=== PATIENT | male | born 1950 | race African-American/Black ===

== ENCOUNTER 2016-11-22 19:23 | Emergency (ER) | payer MEDICARE, MEDICAID ==
[2016-11-22] MEDS ORDERED: IPRATROPIUM/ALBUTEROL 0.5-2.5 MG/3 ML AMPUL NEB ONE (19:35)
[2016-11-22] MEDS ORDERED: PREDNISONE 20 MG TABLET PO ONE (19:35)
[2016-11-22] MEDS: ALBUTEROL SULFATE 0.083% NEB 2.5 MG/3 ML AMPUL NEB SCH ×2 (19:56→20:37)
--- NOTE | 2016-11-22 20:05 | RADIOLOGY REPORT (SQ) ---
EXAM DESCRIPTION: CHEST SINGLE VIEW COMPLETED DATE/TIME: 11/22/2016 7:57 pm REASON FOR STUDY: difficulty breathing COMPARISON: 12/03/2015 NUMBER OF VIEWS: One view. TECHNIQUE: Single frontal radiographic view of the chest acquired. LIMITATIONS: None. FINDINGS: LUNGS AND PLEURA: No consolidation, masses or pneumothorax. No pleural effusion. Attenuate d blood vessels and flattened sarah-diaphragms. MEDIASTINUM AND HILAR STRUCTURES: No masses. Contour normal. HEART AND VASCULAR STRUCTURES: Heart normal in size. Normal vasculature. BONES: Stable old healed rib fractures. HARDWARE: None in the chest. OTHER: No other significant finding. IMPRESSION: COPD. NO ACUTE RADIOGRAPHIC FINDING IN THE CHEST. TECHNICAL DOCUMENTATION: JOB ID: [id number] [employer]- All Rights Reserved
--- NOTE | 2016-11-22 21:17 | ER Document Report ---
ED General - General Chief Complaint: Breathing Difficulty Stated Complaint: NOT FEELING WELL Time Seen by Provider: 11/22/16 19:46 Cannot obtain history due to: Uncooperative Notes: Patient is a 65-year-old male with a past medical history of depression, anxiety , COPD with a chronic 4 L nasal cannula oxygen dependence who presents with " not feeling well" despite spending over 10 minutes at the bedside and trying to get the patient to clarify what he meant, patient just continue to repeat he does not feel well and "that is it". He denies any difficulty breathing chest pain, vomiting, diarrhea, abdominal pain, dysuria, flank pain, headache, neck pain. The nursing assessment is likewise been unproductive and they have not been able to get any additional information from the patient. Review of prior medical records shows that he is typically a very poor historian and does not provide meaningful information arrival. TRAVEL OUTSIDE OF THE [place] IN LAST 30 DAYS: No - Related Data Allergies/Adverse Reactions: Penicillins Allergy (Verified 01/04/15 10:16) Anaphylaxis strawberry [[place]] Allergy (Verified 01/04/15 10:16) Rash Past Medical History - General Information source: Patient Cannot obtain history due to: Mentally challenged, Uncooperative - Social History Smoking Status: Former Smoker Frequency of alcohol use: Heavy Drug Abuse: None Lives with: [facility] Family History: DM, Hypertension - Past Medical History Cardiac Medical History: Reports: Hx Hypercholesterolemia, Hx Hypertension Pulmonary Medical History: Reports: Hx COPD, Hx Pneumonia Denies: Hx Tuberculosis Neurological Medical History: Reports: Hx Seizures Psychiatric Medical History: Denies: Hx Depression - Immunizations Hx Diphtheria, Pertussis, Tetanus Vaccination: Yes Hx Pneumococcal Vaccination: 03/27/12 Review of Systems - Review of Systems Notes: Constitutional: Negative for fever. HENT: Negative for sore throat. Eyes: Negative for visual changes. Cardiovascular: Negative for chest pain. Respiratory: Negative for shortness of breath. Gastrointestinal: Negative for abdominal pain, vomiting or diarrhea. Genitourinary: Negative for dysuria. Musculoskeletal: Negative for back pain. Skin: Negative for rash. Neurological: Negative for headaches, weakness or numbness. 10 point ROS negative except as marked above and in HPI. Physical Exam - Vital signs Vitals: Temp Resp BP Pulse Ox 97.6 F 13 147/88 H 100 11/22/16 19:42 11/22/16 19:42 11/22/16 19:42 11/22/16 19:42 Interpretation: Hypertensive Notes: PHYSICAL EXAMINATION: GENERAL: Appears older than stated age, somewhat cachectic but in no acute distress HEAD: Atraumatic, normocephalic. EYES: Pupils equal round and reactive to light, extraocular movements intact, sclera anicteric, conjunctiva are normal. ENT: nares patent, oropharynx clear without exudates. Moderately dry mucous membranes. NECK: Normal range of motion, supple without lymphadenopathy LUNGS: Scant expiratory wheezing in all lung elliott. Air movement otherwise appropriate throughout. No tachypnea or respiratory distress HEART: Regular rate and rhythm without murmurs ABDOMEN: Soft, nontender, normoactive bowel sounds. No guarding, no rebound. No masses appreciated. EXTREMITIES: Normal range of motion, no pitting or edema. No cyanosis. NEUROLOGICAL: No focal neurological deficits. Moves all extremities spontaneously and on command. PSYCH: Cognitive function appears below normal. Very difficult historian unable to provide meaningful information SKIN: Warm, Dry, normal turgor, no rashes or lesions noted. Course - Re-evaluation Re-evalutation: 11/22/16 21:17 Patient presents with a very vague complaints of not feeling well. Patient is overall older than his stated age in appearance but in no acute distress, vitals within normal limits, no focal findings on examination of the mild expiratory wheezing on exam but does not appear to be having overt COPD exacerbation. Chest x-ray is clear without any evidence of an acute pneumonia. Given the very vague nature of patient's complaints, I will obtain basic screening laboratories and if these are unremarkable plan for discharge back to the nursing facility. 11/22/16 22:49 Laboratories are all unremarkable with exception of mild hyponatremia that appears to be delusional as the BUN creatinine are normal and the urine specific gravity is quite low. Patient continues to be hemodynamically within normal limits. I do not see any indication for further testing or imaging at this time. PCO2 is elevated although pH is normal as patient is a chronic CO2 retainer. Will discharge with recommendations to follow up closely as an outpatient, increased salt intake, as well as clear return precautions. - Vital Signs Vital signs: Temp Pulse Resp BP Pulse Ox 97.6 F 11 L 144/79 H 100 11/22/16 19:42 11/22/16 23:25 11/22/16 23:25 11/22/16 23:25 - Laboratory Result Diagrams: 11/22/16 21:30 11/22/16 21:30 Laboratory results interpreted by me: 11/22/16 11/22/16 11/22/16 21:30 21:30 21:30 RBC 3.87 L Hgb 12.9 L Hct 37.1 L Monocytes % (Manual) 14 H VBG pH 7.29 L VBG pCO2 68.7 H* VBG HCO3 32.2 H Sodium 128.1 L Chloride 90 L AST 79 H Urine Blood 11/22/16 21:36 RBC Hgb Hct Monocytes % (Manual) VBG pH VBG pCO2 VBG HCO3 Sodium Chloride AST Urine Blood SMALL H - Diagnostic Test Radiology reviewed: Image reviewed, Reports reviewed Radiology results interpreted by me: 11/22/16 22:50 Chest x-ray: No acute infiltrate or pneumothorax - EKG Interpretation by Me Additional EKG results interpreted by me: 11/22/16 22:51 Sinus rhythm. Rate 75. No ST elevations or depressions. QTC is 443. Discharge - Discharge Clinical Impression: Hyponatremia COPD (chronic obstructive pulmonary disease) Qualifiers: COPD type: unspecified COPD Qualified Code(s): J44.9 - Chronic obstructive pulmonary disease, unspecified Condition: Good Disposition: HOME, SELF-CARE Additional Instructions: Your labs today show that your sodium is low. Be sure to increase your salt intake and avoid excessive amounts of free water. Your labs and chest x-ray are otherwise normal. Please follow-up with your primary care doctor in the next several days. Return for any additional concerns you may have. Referrals: CARLI GARCIA FNP-C [Primary Care Provider] - Follow up as needed
[2016-11-22 21:36] LABS: VENOUS BLOOD BASE EXCESS 3.6 mmol/L; VENOUS BLOOD HCO3 32.2 mmol/L (20-32); VENOUS BLOOD PH 7.29 (7.30-7.42)
[2016-11-22 21:54] LABS: VENOUS BLOOD PCO2 68.7 mmHg (35-63)
[2016-11-22 21:59] LABS: HEMATOCRIT 37.1 % (37.9-51.0); HEMOGLOBIN 12.9 g/dL (13.5-17.0); HGB HCT DIFFERENCE 1.6; MEAN CORPUSCULAR HEMOGLOBIN 33.4 pg (27.0-33.4); MEAN CORPUSCULAR HGB CONC 34.9 g/dL (32.0-36.0); MEAN CORPUSCULAR VOLUME 96 fl (80-97); RED BLOOD COUNT 3.87 10^6/uL (4.35-5.55); RED CELL DISTRIBUTION WIDTH 13.2 % (11.5-14.0); WHITE BLOOD COUNT 7.1 10^3/uL (4.0-10.5)
[2016-11-22 22:04] VITALS: BP 144/79
[2016-11-22 22:08] LABS: ALANINE AMINOTRANSFERASE 29 U/L (21-72); ALBUMIN 4.7 g/dL (3.5-5.0); ALKALINE PHOSPHATASE 105 U/L (38-126); ANION GAP 8 (5-19); ASPARTATE AMINO TRANSFERASE 79 U/L (17-59); BILIRUBIN,DIRECT 0.3 mg/dL (0.0-0.4); BILIRUBIN,TOTAL 0.3 mg/dL (0.2-1.3); BLOOD UREA NITROGEN 9 mg/dL (7-20); CALCIUM 8.9 mg/dL (8.4-10.2); CARBON DIOXIDE 30 mmol/L (22-30); CHLORIDE 90 mmol/L (98-107); CREATININE RESULT 0.63 mg/dL (0.52-1.25); GLUCOSE 103 mg/dL (75-110); POTASSIUM 4.2 mmol/L (3.6-5.0); SODIUM 128.1 mmol/L (137-145); TOTAL PROTEIN 7.5 g/dL (6.3-8.2)
[2016-11-22 22:33] LABS: APPEARANCE,URINE CLEAR; BILIRUBIN,URINE NEGATIVE (NEGATIVE); GLUCOSE, URINE NEGATIVE (NEGATIVE); KETONES,URINE NEGATIVE (NEGATIVE); LEUKOCYTE ESTERASE,URINE NEGATIVE (NEGATIVE); NITRITE,URINE NEGATIVE (NEGATIVE); PROTEIN,URINE NEGATIVE (NEGATIVE); URINE SPECIFIC GRAVITY 1.005; UROBILINOGEN,URINE NEGATIVE mg/dL (<2.0)
[2016-11-22 22:34] LABS: BASOPHILS % (MANUAL) 0 % (0-2); EOSINOPHILS % (MANUAL) 0 % (0-6); LYMPHOCYTES % (MANUAL) 18 % (13-45); TOTAL CELLS COUNTED 100
[2016-11-22 22:35] LABS: OVALOCYTES SLIGHT; POIKILOCYTOSIS SLIGHT
--- NOTE | 2016-11-22 22:54 | EKG REPORT ---
SEVERITY:- ABNORMAL ECG - SINUS RHYTHM CONSIDER LEFT VENTRICULAR HYPERTROPHY ST ELEVATION SUGGESTS PERICARDITIS : Confirmed by: Laura Chapa 22-Nov-2016 22:54:15
== END 2016-11-22 23:44 | disposition home or self-care (01) ==
LOC: ER 19:23
DX: E87.1 Hypo-osmolality and hyponatremia (principal); J44.9 Chronic obstructive pulmonary disease, unspecified; Z99.81 Dependence on supplemental oxygen; I10 Essential (primary) hypertension; Z91.018 Allergy to other foods; Z87.892 Personal history of anaphylaxis; Z88.0 Allergy status to penicillin; Z87.891 Personal history of nicotine dependence; Z87.01 Personal history of pneumonia (recurrent)
CPT/HCPCS: 93005; 94640 ×2; 99285; 36415; 85025; 80053; 81001; 82803; 71010; 93010; A9270 ×3; J7512; J7620

== ENCOUNTER 2016-11-30 10:45 | Emergency (ER) | payer OTHER, MEDICARE, MEDICAID ==
--- NOTE | 2016-11-30 11:14 | ER Document Report ---
ED General - General Chief Complaint: Pain All Over Stated Complaint: BODY PAIN Time Seen by Provider: 11/30/16 10:53 Notes: This is a 65-year-old male coming from an assisted living facility with vague complaints of not feeling well. intermediate facility states that he called EMS on his own. They did not feel that he needed to be here. By report from nursing staff to the ER staff he does this on a frequent basis. Most recent visit was a few days ago where he had some mild hyponatremia but otherwise is unremarkable. Patient just states that he does not feel well. Unknown time of onset. No other associated signs or symptoms. Nothing seems to make it better or make it worse. TRAVEL OUTSIDE OF THE [place] IN LAST 30 DAYS: No - Related Data Allergies/Adverse Reactions: Penicillins Allergy (Verified 01/04/15 10:16) Anaphylaxis strawberry [[place]] Allergy (Verified 01/04/15 10:16) Rash Home Medications: Current Home Medications Acetaminophen [Acephen] 1 supp.rect RC Q4HP PRN 11/30/16 [History] Acetaminophen [Mapap] 500 mg PO Q4HP PRN 11/30/16 [History] Aspirin [Aspirin 81 mg Chewable Tablet] 81 mg PO DAILY 11/30/16 [History] Atropine Sulfate [Atropine 1% Oph Soln 5 ml] 4 drop SL Q2HP PRN 11/30/16 [ History] Calcium Carbonate [Constantin-Gest] 1 tab PO TID 11/30/16 [History] Diazepam 5 mg PO Q6HP PRN 11/30/16 [History] Diltiazem HCl [Cardizem Cd 240 mg Capsule.cr] 240 mg PO DAILY 11/30/16 [History] Fluticasone/Vilanterol [Breo Ellipta 200-25 Mcg INH] 1 puff IH DAILY 11/30/16 [ History] Haloperidol [Haldol 0.5 mg Tablet] 0.5 mg PO Q4HP PRN 11/30/16 [History] Loperamide HCl [Loperamide] 1 cap PO Q3HP PRN MDD 8 DOSES IN 24HOURS 11/30/16 [ History] Lorazepam [Ativan 0.5 mg Tablet] 0.5 mg PO Q6HP PRN 11/30/16 [History] Oxycodone HCl [Oxycodone HCl ER] 10 mg PO Q12H 11/30/16 [History] Polyethylene Glycol [Polyox Wsr-301] 1 gm MC DAILY 11/30/16 [History] Prednisone [Deltasone 20 mg Tablet] 10 mg PO DAILY 11/30/16 [History] Thiamine Mononitrate (Vit B1) [Vitamin B-1] 100 mg PO DAILY 11/30/16 [History] Past Medical History - Social History Smoking Status: Current Every Day Smoker Chew tobacco use (# tins/day): No Frequency of alcohol use: None Drug Abuse: None Family History: DM, Hypertension Patient has suicidal ideation: No Patient has homicidal ideation: No - Past Medical History Cardiac Medical History: Reports: Hx Hypercholesterolemia, Hx Hypertension Pulmonary Medical History: Reports: Hx COPD, Hx Pneumonia Denies: Hx Tuberculosis Neurological Medical History: Reports: Hx Seizures Renal/ Medical History: Denies: Hx Peritoneal Dialysis Psychiatric Medical History: Denies: Hx Depression - Immunizations Hx Diphtheria, Pertussis, Tetanus Vaccination: Yes Hx Pneumococcal Vaccination: 03/27/12 Review of Systems - Review of Systems Constitutional: Malaise, Weakness EENT: No symptoms reported Cardiovascular: No symptoms reported Gastrointestinal: No symptoms reported Genitourinary: No symptoms reported Male Genitourinary: No symptoms reported Musculoskeletal: No symptoms reported Skin: No symptoms reported Hematologic/Lymphatic: No symptoms reported Neurological/Psychological: No symptoms reported Physical Exam - Vital signs Vitals: Temp Pulse Resp BP Pulse Ox 97.5 F 87 14 117/89 H 98 11/30/16 10:54 11/30/16 10:54 11/30/16 10:54 11/30/16 10:54 11/30/16 10:54 Interpretation: Normal - General General appearance: Appears well, Alert In distress: None - HEENT Head: Normocephalic, Atraumatic Eyes: Normal. No: Scleral icterus Conjunctiva: Normal Extraocular movements intact: Yes Pupils: PERRL Neck: Normal. No: Carotid bruit - Respiratory Respiratory status: No respiratory distress Chest status: Nontender Breath sounds: Normal Chest palpation: Normal - Cardiovascular Rhythm: Regular Heart sounds: Normal auscultation Murmur: No - Abdominal Inspection: Normal Distension: No distension Bowel sounds: Normal Tenderness: Nontender Organomegaly: No organomegaly - Back Back: Normal, Nontender. No: Tender, Deformity/step-off, CVA tenderness - Extremities General upper extremity: Normal inspection, Nontender, Normal color, Normal ROM , Normal temperature General lower extremity: Normal inspection, Nontender, Normal color, Normal ROM , Normal temperature, Normal weight bearing. No: Katja's sign - Neurological Neuro grossly intact: Yes Cognition: Normal Orientation: AAOx4, Disoriented to place. No: Disoriented to time [place] Coma Scale Eye Opening: Spontaneous [place] Coma Scale Verbal: Oriented [place] Coma Scale Motor: Obeys Commands [place] Coma Scale Total: 15 Speech: Normal Motor strength normal: LUE, RUE, LLE, RLE Sensory: Normal - Psychological Associated symptoms: Normal affect, Normal mood. No: Aggressive, Agitated, Angry, Anxious, Confused - Skin Skin Temperature: Warm Skin Moisture: Dry Skin Color: Normal Course - Re-evaluation Re-evalutation: 11/30/16 11:14 This is a 65-year-old male in no acute distress at this time. Will order CBC, chemistry, UA if possible. Will give patient breakfast. Will reassess. 11/30/16 13:58 Labs fairly unremarkable. Has some baseline hyponatremia. Patient is eating and drinking. Does have some ketones in the urine but otherwise unremarkable. This likely represents his poor nutritional status. At this time find nothing that deserves admission to the hospital. [facility] at [facility] time. - Vital Signs Vital signs: Temp Pulse Resp BP Pulse Ox 97.3 F 100 12 122/86 H 100 11/30/16 12:38 11/30/16 12:38 11/30/16 12:38 11/30/16 12:38 11/30/16 12:38 - Laboratory Result Diagrams: 11/30/16 12:00 11/30/16 12:00 Laboratory results interpreted by me: 11/30/16 11/30/16 11/30/16 12:00 12:00 12:56 WBC 3.7 L RBC 4.24 L Monocytes % 17.4 H Sodium 130.7 L Chloride 87 L Direct Bilirubin 0.5 H Urine Protein 30 H Urine Ketones 80 H Urine Blood SMALL H Discharge - Discharge Clinical Impression: Myalgia, Weakness, Hyponatremia, Ketonuria Condition: Good Disposition: HOME-SNF (ED ONLY) Additional Instructions: Weakness We did not find a definite cause for your weakness. This may require further medical tests. Weakness can be caused by infection, physical exhaustion , rapid weight loss, dehydration, or medicine side effects. Diseases of the muscles, heart, nerves, and blood vessels can make you weak. Sometimes the problem is simply depression or lack of exercise. You should get plenty of rest. Unless the doctor tells you otherwise, it's usually best to add short periods of regular mild exercise. Eat a nutritious diet with multiple small, low-sugar meals. If symptoms continue, additional medical evaluation will be necessary. Be sure to follow up as instructed. If you become very dizzy, nauseated, or feel like you're going to faint, lie down right away. Wait until the symptoms have passed before you get up again. Stand up slowly. Call the doctor or return if you develop chest pain, abdominal pain, severe headache, irregular heartbeat or very fast pulse, confusion, vision problems, fever, muscular pain, or any other new symptom. Hyponatremia You have an abnormally low level of serum sodium, called hyponatremia. Low serum sodium may cause weakness, fatigue, confusion, or even seizures. Usually, low sodium is due to taking diuretics (water pills), combined with drinking too much water. It can also be due to excessive vomiting or diarrhea. If no obvious cause is evident, further evaluation will be necessary. If the hyponatremia results from taking diuretics, it's treated by restricting the amount of water you can drink. If it's due to vomiting and diarrhea, it's treated by drinking liberal amounts of rehydration solution (for example Lytren or Pedialyte). A follow-up blood test is often done to see that the sodium is returning to normal. Call the physician if you have severe weakness, muscle twitching or cramping, palpitations (pounding or irregular heartbeat), confusion, headache, seizures, or any other new or alarming symptoms. Myalagia (Muscle Pain) Myalgia is pain in the muscles. We use the word myalgia to describe muscle pain where there's no history of injury, no known muscle disease, and the muscles are normal to examination. Myalgias can be a symptom of an acute illness , such as influenza, hepatitis, or any viral illness, especially with fever. Sometimes the muscle pain comes before any other symptoms. Myalgia can also be an early symptom of inflammatory muscle disease, such as lupus. If myalgia is accompanied by an acute illness that explains the muscle pain , then no further testing needs to be done. When there's no clear reason for the pain, tests may be done to see if there's an inflammatory or other disease of the muscles. The usual treatment for myalgias is anti-inflammatory medication, such as ibuprofen. Muscle aches may be soothed with a heating pad or hot compress. If muscles remain painful for more than a few days, you'll need testing and followup. Return if a muscle becomes swollen, red, or severely painful.
[2016-11-30 12:18] LABS: ABSOLUTE BASOPHILS # (AUTO) 0.1 10^3/uL (0.0-0.2); ABSOLUTE EOSINOPHILS # (AUTO) 0.1 10^3/uL (0.0-0.6); ABSOLUTE LYMPHOCYTES (AUTO) 1.2 10^3/uL (0.5-4.7); ABSOLUTE MONOCYTES (AUTO) 0.6 10^3/uL (0.1-1.4); ABSOLUTE NEUT (AUTO) 1.7 10^3/uL (1.7-8.2); BASOPHILS % (AUTO) 1.4 % (0-2); EOSINOPHILS % (AUTO) 2.7 % (0-6); HEMATOCRIT 40.3 % (37.9-51.0); HEMOGLOBIN 13.8 g/dL (13.5-17.0); HGB HCT DIFFERENCE 1.1; LYMPHOCYTES % (AUTO) 33.1 % (13-45); MEAN CORPUSCULAR HEMOGLOBIN 32.4 pg (27.0-33.4); MEAN CORPUSCULAR HGB CONC 34.1 g/dL (32.0-36.0); MEAN CORPUSCULAR VOLUME 95 fl (80-97); MONOCYTES % (AUTO) 17.4 % (3-13); RED BLOOD COUNT 4.24 10^6/uL (4.35-5.55); RED CELL DISTRIBUTION WIDTH 13.3 % (11.5-14.0); SEGMENTED NEUTROPHILS % (AUTO) 45.4 % (42-78); WHITE BLOOD COUNT 3.7 10^3/uL (4.0-10.5)
[2016-11-30 12:29] LABS: ALANINE AMINOTRANSFERASE 43 U/L (21-72); ALBUMIN 4.7 g/dL (3.5-5.0); ALKALINE PHOSPHATASE 98 U/L (38-126); ANION GAP 15 (5-19); ASPARTATE AMINO TRANSFERASE 34 U/L (17-59); BILIRUBIN,DIRECT 0.5 mg/dL (0.0-0.4); BILIRUBIN,TOTAL 0.6 mg/dL (0.2-1.3); BLOOD UREA NITROGEN 13 mg/dL (7-20); CALCIUM 9.5 mg/dL (8.4-10.2); CARBON DIOXIDE 29 mmol/L (22-30); CHLORIDE 87 mmol/L (98-107); CREATININE RESULT 0.67 mg/dL (0.52-1.25); GLUCOSE 81 mg/dL (75-110); SODIUM 130.7 mmol/L (137-145); TOTAL PROTEIN 7.4 g/dL (6.3-8.2)
[2016-11-30 13:23] LABS: APPEARANCE,URINE CLEAR; BILIRUBIN,URINE NEGATIVE (NEGATIVE); GLUCOSE, URINE NEGATIVE (NEGATIVE); KETONES,URINE 80 mg/dL (NEGATIVE); LEUKOCYTE ESTERASE,URINE NEGATIVE (NEGATIVE); NITRITE,URINE NEGATIVE (NEGATIVE); PROTEIN,URINE 30 mg/dL (NEGATIVE); URINE SPECIFIC GRAVITY 1.027; UROBILINOGEN,URINE NEGATIVE mg/dL (<2.0)
[2016-11-30 14:54] VITALS: BP 147/87
== END 2016-11-30 14:45 ==
LOC: ER 10:45
DX: E87.1 Hypo-osmolality and hyponatremia (principal); M79.1 Myalgia; R82.4 Acetonuria; R53.1 Weakness; R53.81 Other malaise; F17.200 Nicotine dependence, unspecified, uncomplicated; I10 Essential (primary) hypertension; J44.9 Chronic obstructive pulmonary disease, unspecified; Z88.0 Allergy status to penicillin; Z91.018 Allergy to other foods
CPT/HCPCS: 36415; 80053; 81001; 85025; 99284

== ENCOUNTER 2016-12-06 21:39 | Emergency (ER) | payer OTHER, MEDICARE, MEDICAID ==
--- NOTE | 2016-12-06 22:13 | RADIOLOGY REPORT (SQ) ---
EXAM DESCRIPTION: CHEST SINGLE VIEW COMPLETED DATE/TIME: 12/06/2016 10:03 pm REASON FOR STUDY: cp COMPARISON: 11/22/2016 NUMBER OF VIEWS: One view. TECHNIQUE: Single frontal radiographic view of the chest acquired. LIMITATIONS: None. FINDINGS: LUNGS AND PLEURA: No opacities, masses or pneumothorax. No pleural effusion. Attenuated bl ood vessels and flattened sarah-diaphragms. MEDIASTINUM AND HILAR STRUCTURES: No masses. Contour normal. HEART AND VASCULAR STRUCTURES: Heart normal in size. Normal vasculature. BONES: No acute findings. Multiple old healed rib fractures. HARDWARE: None in the chest. OTHER: No other significant finding. IMPRESSION: COPD. NO ACUTE RADIOGRAPHIC FINDING IN THE CHEST. NO SIGNIFICANT CHANGE FROM PRIOR TIBURCIO DY. TECHNICAL DOCUMENTATION: JOB ID: [id number]- All Rights Reserved
[2016-12-06 22:14] LABS: ABSOLUTE LYMPHOCYTES (AUTO) 1.2 10^3/uL (0.5-4.7); ABSOLUTE MONOCYTES (AUTO) 0.6 10^3/uL (0.1-1.4); ABSOLUTE NEUT (AUTO) 2.3 10^3/uL (1.7-8.2); BASOPHILS % (AUTO) 0.9 % (0-2); EOSINOPHILS % (AUTO) 0.6 % (0-6); HEMATOCRIT 34.1 % (37.9-51.0); HEMOGLOBIN 11.9 g/dL (13.5-17.0); HGB HCT DIFFERENCE 1.6; LYMPHOCYTES % (AUTO) 28.2 % (13-45); MEAN CORPUSCULAR HEMOGLOBIN 33.4 pg (27.0-33.4); MEAN CORPUSCULAR VOLUME 96 fl (80-97); MONOCYTES % (AUTO) 14.4 % (3-13); RED BLOOD COUNT 3.57 10^6/uL (4.35-5.55); RED CELL DISTRIBUTION WIDTH 13.1 % (11.5-14.0); SEGMENTED NEUTROPHILS % (AUTO) 55.9 % (42-78); WHITE BLOOD COUNT 4.2 10^3/uL (4.0-10.5)
[2016-12-06 22:27] LABS: ALANINE AMINOTRANSFERASE 35 U/L (21-72); ALBUMIN 4.4 g/dL (3.5-5.0); ALKALINE PHOSPHATASE 88 U/L (38-126); ANION GAP 10 (5-19); ASPARTATE AMINO TRANSFERASE 32 U/L (17-59); BILIRUBIN,DIRECT 0.3 mg/dL (0.0-0.4); BILIRUBIN,TOTAL 0.3 mg/dL (0.2-1.3); BLOOD UREA NITROGEN 9 mg/dL (7-20); CALCIUM 8.9 mg/dL (8.4-10.2); CARBON DIOXIDE 32 mmol/L (22-30); CHLORIDE 93 mmol/L (98-107); CREATINE KINASE 160 U/L (55-170); CREATININE RESULT 0.78 mg/dL (0.52-1.25); GLUCOSE 79 mg/dL (75-110); POTASSIUM 4.4 mmol/L (3.6-5.0); SODIUM 134.8 mmol/L (137-145)
[2016-12-06 22:39] LABS: CREATINE KINASE MB 2.04 ng/mL (<4.55)
[2016-12-06 22:42] LABS: TROPONIN I < 0.012 ng/mL
--- NOTE | 2016-12-06 23:59 | ER Document Report ---
ED Cardiac - General Chief Complaint: Chest Pain Stated Complaint: CHEST PAIN Time Seen by Provider: 12/06/16 23:06 Notes: Patient is a 66-year-old male who presents via EMS from [facility] with a chief complaint of bilateral substernal chest pain that is started approximately 9 this evening. Described as sharp stabbing pain by EMS. He received 324 mg of aspirin at [facility] and nitroglycerin. Patient is calm and cooperative and states his pain is 1 out of 5 at this time. Mainly his chief complaint with me at the bedside is that he is cold and he is denying any chest pain at this time. Per report from the nursing staff he does call EMS on his own on a frequent basis. Otherwise denies any shortness of breath, chest pain, difficulty breathing, difficulty nausea, vomiting, abdominal pain fevers or chills. TRAVEL OUTSIDE OF THE [place] IN LAST 30 DAYS: No - Related Data Allergies/Adverse Reactions: Penicillins Allergy (Verified 12/06/16 22:34) Anaphylaxis strawberry [[place]] Allergy (Verified 12/06/16 22:34) Rash Past Medical History - Social History Smoking Status: Former Smoker Family History: DM, Hypertension - Past Medical History Cardiac Medical History: Reports: Hx Hypercholesterolemia, Hx Hypertension Pulmonary Medical History: Reports: Hx COPD, Hx Pneumonia Denies: Hx Tuberculosis Neurological Medical History: Reports: Hx Seizures Renal/ Medical History: Denies: Hx Peritoneal Dialysis GI Medical History: Reports: Hx Gastroesophageal Reflux Disease Psychiatric Medical History: Denies: Hx Depression - Immunizations Hx Diphtheria, Pertussis, Tetanus Vaccination: Yes Hx Pneumococcal Vaccination: 03/27/12 Review of Systems - Review of Systems Constitutional: No symptoms reported Cardiovascular: See HPI Respiratory: See HPI Gastrointestinal: See HPI -: Yes All other systems reviewed and negative Physical Exam - Vital signs Vitals: Resp 15 12/06/16 21:40 - Notes Notes: PHYSICAL EXAM GENERAL: Alert, interacts well. HEAD: Normocephalic, atraumatic. EYES: Pupils equal, round, and reactive to light. Extraocular movements intact. ENT: Oral mucosa moist, tongue midline. NECK: Full range of motion. Supple. Trachea midline. LUNGS: Clear to auscultation bilaterally, no wheezes, rales, or rhonchi. No respiratory distress. HEART: Regular rate and rhythm. No murmurs, gallops, or rubs. ABDOMEN: Soft, nondistended, nontender. No guarding, rebound, or rigidity.. Bowel sounds present in all 4 quadrants. EXTREMITIES: Moves all 4 extremities spontaneously. No edema, radial and dorsalis pedis pulses 2/4 bilaterally. No cyanosis. NEUROLOGICAL: Alert and oriented x4. Normal speech. PSYCH: Normal affect, normal mood. SKIN: Warm, dry, normal turgor. No rashes or lesions noted. Course - Re-evaluation Re-evalutation: 12/07/16 02:26 Patient presents with a very vague complaints of not feeling well. Patient is overall older than his stated age in appearance but in no acute distress, vitals within normal limits, no focal findings on examination. Low clinical suspicion for ACS given clinical history, exam, EKG without ST elevations or depressions, and negative initial troponin.Chest x-ray is clear without any evidence of an acute pneumonia. Laboratories are all unremarkable . Patient continues to be hemodynamically within normal limits. I do not see any indication for further testing or imaging at this time. Will discharge with recommendations to follow up closely as an outpatient, increased salt intake, as well as clear return precautions. - Vital Signs Vital signs: Temp Pulse Resp BP Pulse Ox 97.7 F 12 137/99 H 99 12/07/16 03:20 12/07/16 03:18 12/07/16 03:18 12/07/16 03:18 - Laboratory Result Diagrams: 12/06/16 21:55 12/06/16 21:55 Laboratory results interpreted by me: 12/06/16 12/06/16 21:55 21:55 RBC 3.57 L Hgb 11.9 L Hct 34.1 L Monocytes % 14.4 H Sodium 134.8 L Chloride 93 L Carbon Dioxide 32 H - Diagnostic Test Radiology reviewed: Image reviewed, Reports reviewed - EKG Interpretation by Me EKG shows normal: Sinus rhythm Rate: Normal Rhythm: NSR When compared to previous EKG there are: No significant change Discharge - Discharge Clinical Impression: Chest pain Qualifiers: Chest pain type: unspecified Qualified Code(s): R07.9 - Chest pain, unspecified Condition: Good Disposition: HOME, SELF-CARE Additional Instructions: NORMAL EXAM AND WORKUP: At this time, your examination and workup show no significant abnormality. No significant abnormal physical findings were noted. All laboratory, EKG, and imaging (x-ray, CT scans, ultrasound) studies that were ordered show no significant abnormality. Although your examination and all studies that were ordered showed no significant abnormal finding, there are no examinations and no studies that are 100% accurate. There is always the possibility that some abnormality could exist and not be detected with physical examination or within the limits and capabilities of laboratory and other studies. You should return or follow up as you were instructed on your visit today for further evaluation if your symptoms do not resolve. CHEST WALL PAIN: Your chest pain may be coming from the chest wall. This is often caused by straining the muscles or joints in the chest during physical activity, direct trauma, coughing, or vigorous vomiting. Persons with arthritis are especially prone to this type of pain, due to inflammation of the cartilage joints near the breast bone. Occasionally, no cause can be found. Rest from strenuous physical activity. This kind of chest pain is usually made worse by movement of the chest. Depending on the symptoms, we may prescribe medicine for pain, muscle relaxation, and antiinflammatory effects. If the pain is new, and seems to be due to muscle strain, cold packs can help. Otherwise, apply gentle warmth to the painful area for 15 minutes every hour or two. You should call contact the doctor immediately if things change. Further evaluation is needed if you develop a fever or cough, if the nature of the pain changes, or if you become short of breath. FOLLOW-UP CARE: If you have been referred to a physician for follow-up care, call the physician s office for an appointment as you were instructed or within the next two days. If you experience worsening or a significant change in your symptoms, notify the physician immediately or return to the Emergency Department at any time for re-evaluation.
[2016-12-07 03:27] VITALS: BP 137/99
--- NOTE | 2016-12-07 07:46 | EKG REPORT ---
SEVERITY:- ABNORMAL ECG - SINUS RHYTHM RIGHT ATRIAL ABNORMALITY CONSIDER LEFT VENTRICULAR HYPERTROPHY : Confirmed by: Jalen Antunez MD 07-Dec-2016 07:45:01
== END 2016-12-07 03:26 | disposition home or self-care (01) ==
LOC: ER 21:39
DX: R07.9 Chest pain, unspecified (principal); E78.00 Pure hypercholesterolemia, unspecified; I10 Essential (primary) hypertension; J44.9 Chronic obstructive pulmonary disease, unspecified; Z88.0 Allergy status to penicillin
CPT/HCPCS: 36415; 71010; 80053; 82550; 82553; 84484; 85025; 93005; 93010; 99285

== ENCOUNTER 2016-12-12 09:46 | Observation (INO) | payer OTHER, MEDICARE, MEDICAID ==
[2016-12-12] MEDS ORDERED: ASPIRIN 81 MG TABLET, CHEWABLE PO ONE (09:57)
--- NOTE | 2016-12-12 10:14 | ER Document Report ---
ED Cardiac - General Stated Complaint: CHEST PAIN Time Seen by Provider: 12/12/16 09:59 Mode of Arrival: Stretcher Information source: Patient TRAVEL OUTSIDE OF THE [place] IN LAST 30 DAYS: No - HPI Patient complains to provider of: Chest pain Quality of pain: Achy Chest pain precipitating factors: At Rest Cardiac risk factors: Smoker Similar symptoms previously: Yes Notes: Patient is a 66-year-old male sent from [facility] for complaints of chest pain, he states the chest pain started this morning, patient is otherwise a very poor historian and cannot answer any specific questions otherwise, when I asked him what his complaint was he stated "they say it is chest pain but I say it is heart pain", then when I asked him specifically where his pain is he states "all over" - Related Data Allergies/Adverse Reactions: Penicillins Allergy (Verified 12/12/16 11:06) Anaphylaxis strawberry [[place]] Allergy (Verified 12/12/16 11:06) Rash Past Medical History - General Information source: Patient, Outside Facility Records - Social History Smoking Status: Current Every Day Smoker Family History: DM, Hypertension - Past Medical History Cardiac Medical History: Reports: Hx Hypercholesterolemia, Hx Hypertension Pulmonary Medical History: Reports: Hx COPD, Hx Pneumonia Denies: Hx Tuberculosis Neurological Medical History: Reports: Hx Seizures Renal/ Medical History: Denies: Hx Peritoneal Dialysis GI Medical History: Reports: Hx Gastroesophageal Reflux Disease Psychiatric Medical History: Denies: Hx Depression - Immunizations Hx Diphtheria, Pertussis, Tetanus Vaccination: Yes Hx Pneumococcal Vaccination: 03/27/12 Review of Systems - Review of Systems Constitutional: No symptoms reported EENT: No symptoms reported Cardiovascular: Chest pain Respiratory: No symptoms reported Gastrointestinal: No symptoms reported Genitourinary: No symptoms reported Male Genitourinary: No symptoms reported Musculoskeletal: No symptoms reported Skin: No symptoms reported Hematologic/Lymphatic: No symptoms reported Neurological/Psychological: No symptoms reported -: Yes All other systems reviewed and negative Physical Exam - Vital signs Vitals: Pulse Ox 100 12/12/16 09:57 Interpretation: Normal - General General appearance: Appears well, Alert - HEENT Head: Normocephalic, Atraumatic Eyes: Normal Pupils: PERRL - Respiratory Respiratory status: No respiratory distress Chest status: Nontender Breath sounds: Normal Chest palpation: Normal - Cardiovascular Rhythm: Regular Heart sounds: Normal auscultation Murmur: No - Abdominal Inspection: Normal Distension: No distension Bowel sounds: Normal Tenderness: Nontender Organomegaly: No organomegaly - Back Back: Normal, Nontender - Extremities General upper extremity: Normal inspection, Nontender, Normal color, Normal ROM , Normal temperature General lower extremity: Normal inspection, Nontender, Normal color, Normal ROM , Normal temperature, Normal weight bearing. No: Katja's sign - Neurological Neuro grossly intact: Yes Cognition: Normal Orientation: AAOx4 [place] Coma Scale Eye Opening: Spontaneous [place] Coma Scale Verbal: Oriented [place] Coma Scale Motor: Obeys Commands [place] Coma Scale Total: 15 Speech: Normal Motor strength normal: LUE, RUE, LLE, RLE Sensory: Normal - Psychological Associated symptoms: Normal affect, Normal mood - Skin Skin Temperature: Warm Skin Moisture: Dry Skin Color: Normal Course - Re-evaluation Re-evalutation: 12/12/16 14:50 1450- call to Dr Reagan for admission- requested call to Dr Briseno call to Dr Briseno- will call back 12/12/16 15:[address] Briseno, accepts patient for admission but requests that he be able to evaluate patient before decision on which type of bed to admit or whether full admit or observation 12/12/16 16:16 [address] did speak with Dr[address] Frederick as he signed a DNR order in November 2015, to see if I can get some further information on patient regarding why he may be pancytopenic, he believes that this patient is 1 of his community care patients he requested I call Meagan from hospice at [phone] I did speak with Meagan from hospice she reports that patient was placed on hospice in May 2015 for COPD and history of falls with a cervical fracture, she reports that he has chronic pain issues as well as depression and anxiety, which increased after they discontinued services in October because he had no health decline related to the COPD, when hospice was involved he was having a daily visitor coming, since then he apparently has had more somatic complaints likely related to depression and possible loneliness - Vital Signs Vital signs: Temp Pulse Resp BP Pulse Ox 97.6 F 74 14 127/84 H 100 12/12/16 14:35 12/12/16 10:23 12/12/16 15:01 12/12/16 15:01 12/12/16 15:01 - Laboratory Result Diagrams: 12/12/16 12:04 12/12/16 12:56 Laboratory results interpreted by me: 12/12/16 12/12/16 12/12/16 10:30 12:04 12:56 WBC 2.9 L RBC 3.80 L Hgb 12.5 L Hct 36.0 L Plt Count 140 L Sodium 129.2 L Chloride 91 L Total Protein 6.2 L Urine Ketones TRACE H - Diagnostic Test Radiology reviewed: Image reviewed, Reports reviewed - EKG Interpretation by Me EKG shows normal: Sinus rhythm Rate: Normal Rhythm: NSR Discharge - Discharge Clinical Impression: Pancytopenia Chest pain Qualifiers: Chest pain type: unspecified Qualified Code(s): R07.9 - Chest pain, unspecified Condition: Stable Disposition: ADMITTED INPATIENT Admitting Provider: Hospitalist Unit Admitted: Telemetry
[2016-12-12 11:09] LABS: APPEARANCE,URINE CLEAR; BILIRUBIN,URINE NEGATIVE (NEGATIVE); GLUCOSE, URINE NEGATIVE (NEGATIVE); KETONES,URINE TRACE mg/dL (NEGATIVE); LEUKOCYTE ESTERASE,URINE NEGATIVE (NEGATIVE); NITRITE,URINE NEGATIVE (NEGATIVE); PROTEIN,URINE NEGATIVE (NEGATIVE); URINE SPECIFIC GRAVITY 1.015; UROBILINOGEN,URINE NEGATIVE mg/dL (<2.0)
--- NOTE | 2016-12-12 11:55 | RADIOLOGY REPORT (SQ) ---
EXAM DESCRIPTION: CHEST SINGLE VIEW COMPLETED DATE/TIME: 12/12/2016 11:18 am REASON FOR STUDY: cp COMPARISON: 12/06/2016 EXAM PARAMETERS: NUMBER OF VIEWS: One view. TECHNIQUE: Single frontal radiographic view of the chest acquired. RADIATION DOSE: NA LIMITATIONS: None. FINDINGS: LUNGS AND PLEURA: There is marked hyperexpansion of the lungs with marked lucency. No acu te infiltrate or effusion is seen. MEDIASTINUM AND HILAR STRUCTURES: No masses. Contour normal. HEART AND VASCULAR STRUCTURES: Heart normal in size. Normal vasculature. BONES: Rib deformities are present on the right. HARDWARE: None in the chest. OTHER: No other significant finding. IMPRESSION: Marked chronic lung changes with no acute cardiopulmonary disease. TECHNICAL DOCUMENTATION: JOB ID: [id number]
[2016-12-12 12:18] LABS: ABSOLUTE LYMPHOCYTES (AUTO) 0.7 10^3/uL (0.5-4.7); ABSOLUTE MONOCYTES (AUTO) 0.4 10^3/uL (0.1-1.4); ABSOLUTE NEUT (AUTO) 1.7 10^3/uL (1.7-8.2); BASOPHILS % (AUTO) 1.5 % (0-2); EOSINOPHILS % (AUTO) 1.2 % (0-6); HEMOGLOBIN 12.5 g/dL (13.5-17.0); HGB HCT DIFFERENCE 1.5; LYMPHOCYTES % (AUTO) 25.4 % (13-45); MEAN CORPUSCULAR HEMOGLOBIN 32.8 pg (27.0-33.4); MEAN CORPUSCULAR HGB CONC 34.6 g/dL (32.0-36.0); MEAN CORPUSCULAR VOLUME 95 fl (80-97); MONOCYTES % (AUTO) 12.6 % (3-13); RED CELL DISTRIBUTION WIDTH 13.1 % (11.5-14.0); SEGMENTED NEUTROPHILS % (AUTO) 59.3 % (42-78); WHITE BLOOD COUNT 2.9 10^3/uL (4.0-10.5)
[2016-12-12 13:26] LABS: ALANINE AMINOTRANSFERASE 31 U/L (21-72); ALKALINE PHOSPHATASE 90 U/L (38-126); ANION GAP 11 (5-19); ASPARTATE AMINO TRANSFERASE 25 U/L (17-59); BILIRUBIN,DIRECT 0.3 mg/dL (0.0-0.4); BILIRUBIN,TOTAL 0.4 mg/dL (0.2-1.3); BLOOD UREA NITROGEN 7 mg/dL (7-20); CALCIUM 8.6 mg/dL (8.4-10.2); CARBON DIOXIDE 27 mmol/L (22-30); CHLORIDE 91 mmol/L (98-107); CREATINE KINASE 79 U/L (55-170); GLUCOSE 102 mg/dL (75-110); POTASSIUM 4.1 mmol/L (3.6-5.0); SODIUM 129.2 mmol/L (137-145); TOTAL PROTEIN 6.2 g/dL (6.3-8.2)
[2016-12-12 13:38] LABS: CREATINE KINASE MB 1.03 ng/mL (<4.55)
[2016-12-12 13:40] LABS: TROPONIN I < 0.012 ng/mL
[2016-12-12] MEDS ORDERED: ONDANSETRON 4 MG TAB.RAPDIS PO PRN (16:01)
[2016-12-12] MEDS ORDERED: IBUPROFEN 600 MG TABLET PO ONE (16:02)
--- NOTE | 2016-12-12 16:50 | PDOC H&P ---
History of Present Illness Admission Date/PCP: 12/12/16 16:29 Patient complains of: chest pain History of Present Illness: CHRISTIANE BERNAL is a 66 year old male presents with complaint of chest pain which started earlier today. Pt states that he is not having chest pain currently. Pt states that he did not have nausea/vomiting. Pt denies fever. Pt is a poor historian. Past Medical History Cardiac Medical History: Reports: Hyperlipidema, Hypertension Pulmonary Medical History: Reports: Chronic Obstructive Pulmonary Disease (COPD) , Pneumonia Denies: Tuberculosis Neurological Medical History: Reports: Seizures GI Medical History: Reports: Gastroesophageal Reflux Disease Psychiatric Medical History: Denies: Depression Social History Smoking Status: Current Every Day Smoker Frequency of Alcohol Use: Occasional Hx Recreational Drug Use: No Hx Prescription Drug Abuse: No Family History Family History: DM, Hypertension Parental Family History Reviewed: Yes Children Family History Reviewed: Yes Sibling(s) Family History Reviewed.: Yes Medication/Allergy Home Medications: Phenytoin Sodium Extended 400 mg PO DAILY 07/21/13 Tiotropium [place] [Spiriva Handihaler 18 mcg/dose (30 Dose)] 1 cap IH DAILY Phenobarbital [Phenobarbital 32.4 mg Tablet] 32.4 mg PO TID 10/12/14 Mirtazapine [Remeron 15 mg Tablet] 7.5 mg PO QHS #30 tablet 10/28/14 Guaifenesin [Mucinex Sr 600 mg Tablet.sa] 600 mg PO Q12HP PRN 11/06/14 Pravastatin Sodium [Pravachol] 40 mg PO QPM 11/06/14 Omeprazole [Prilosec] 20 mg PO ACBRKFST #14 capsule. 11/08/14 Acetaminophen [Acephen] 1 supp.rect RC Q4HP PRN 11/30/16 Acetaminophen [Mapap] 500 mg PO Q4HP PRN 11/30/16 Aspirin [Aspirin 81 mg Chewable Tablet] 81 mg PO DAILY 11/30/16 Atropine Sulfate [Atropine 1% Oph Soln 5 ml] 4 drop SL Q2HP PRN 11/30/16 Calcium Carbonate [Constantin-Gest] 1 tab PO TID 11/30/16 Diazepam 5 mg PO Q6HP PRN 11/30/16 Diltiazem HCl [Cardizem Cd 240 mg Capsule.cr] 240 mg PO DAILY 11/30/16 Fluticasone/Vilanterol [Breo Ellipta 200-25 Mcg INH] 1 puff IH DAILY 11/30/16 Haloperidol [Haldol 0.5 mg Tablet] 0.5 mg PO Q4HP PRN 11/30/16 Loperamide HCl [Loperamide] 1 cap PO Q3HP PRN MDD 8 DOSES IN 24HOURS 11/30/16 Lorazepam [Ativan 0.5 mg Tablet] 0.5 mg PO Q6HP PRN 11/30/16 Oxycodone HCl [Oxycodone HCl ER] 10 mg PO Q12H 11/30/16 Polyethylene Glycol [Polyox Wsr-301] 1 gm MC DAILY 11/30/16 Prednisone [Deltasone 20 mg Tablet] 10 mg PO DAILY 11/30/16 Thiamine Mononitrate (Vit B1) [Vitamin B-1] 100 mg PO DAILY 11/30/16 Allergies/Adverse Reactions: Penicillins Allergy (Verified 12/12/16 11:06) Anaphylaxis strawberry [[place]] Allergy (Verified 12/12/16 11:06) Rash Review of Systems Constitutional: ABSENT: chills, fever(s), headache(s), weight gain, weight loss Eyes: ABSENT: visual disturbances Ears: ABSENT: hearing changes Cardiovascular: PRESENT: chest pain. ABSENT: dyspnea on exertion, edema, orthropnea, palpitations Respiratory: ABSENT: cough, hemoptysis Gastrointestinal: ABSENT: abdominal pain, constipation, diarrhea, hematemesis, hematochezia, nausea, vomiting Genitourinary: ABSENT: dysuria, hematuria Musculoskeletal: ABSENT: joint swelling Integumentary: ABSENT: rash, wounds Neurological: ABSENT: abnormal gait, abnormal speech, confusion, dizziness, focal weakness, syncope Psychiatric: ABSENT: anxiety, depression, homidical ideation, suicidal ideation Endocrine: ABSENT: cold intolerance, heat intolerance, polydipsia, polyuria Hematologic/Lymphatic: ABSENT: easy bleeding, easy bruising Physical Exam Vital Signs: Temp Pulse Resp BP Pulse Ox 97.6 F 74 14 127/84 H 100 12/12/16 14:35 12/12/16 10:23 12/12/16 15:01 12/12/16 15:01 12/12/16 15:01 General appearance: PRESENT: no acute distress, thin Head exam: PRESENT: atraumatic, normocephalic Eye exam: PRESENT: conjunctiva pink, EOMI. ABSENT: scleral icterus Ear exam: PRESENT: normal external ear exam Mouth exam: PRESENT: moist, tongue midline Neck exam: ABSENT: carotid bruit, JVD, lymphadenopathy, thyromegaly Respiratory exam: PRESENT: clear to auscultation roberta. ABSENT: rales, rhonchi, wheezes Cardiovascular exam: PRESENT: RRR. ABSENT: diastolic murmur, rubs, systolic murmur Pulses: PRESENT: normal dorsalis pedis pul Vascular exam: PRESENT: normal capillary refill GI/Abdominal exam: PRESENT: normal bowel sounds, soft. ABSENT: distended, guarding, mass, organolmegaly, rebound, tenderness Rectal exam: PRESENT: deferred Extremities exam: PRESENT: full ROM. ABSENT: calf tenderness, clubbing, pedal edema Neurological exam: PRESENT: alert, awake, oriented to person, oriented to place , oriented to time, oriented to situation, CN II-XII grossly intact. ABSENT: motor sensory deficit Psychiatric exam: PRESENT: flat affect. ABSENT: homicidal ideation, suicidal ideation Skin exam: PRESENT: dry, intact, warm. ABSENT: cyanosis, rash Results Impressions: Chest X-Ray 12/12/16 09:57 IMPRESSION: Marked chronic lung changes with no acute cardiopulmonary disease. Assessment & Plan - Diagnosis (1) Chest pain Qualifiers: Chest pain type: unspecified Qualified Code(s): R07.9 - Chest pain, unspecified Is this a current diagnosis for this admission?: Yes Plan: We will continue to trend troponins, 2D echo, and arrange for stress test. (2) Protein-calorie malnutrition, moderate Is this a current diagnosis for this admission?: Yes Plan: We will write for supplemental drinks Ensure. (3) Pancytopenia Is this a current diagnosis for this admission?: Yes Plan: We will need to evaluate patient's home medicines once pharmacy has confirmed patient's medication list. Etiologies currently is possible drug-induced versus history of EtOH abuse (4) Alcoholism Is this a current diagnosis for this admission?: Yes Plan: Patient living at [facility] (5) Seizure disorder Is this a current diagnosis for this admission?: Yes Plan: We will continue patient's home medicines once known. (6) DVT prophylaxis Is this a current diagnosis for this admission?: Yes Plan: SCDs - Time Time Spent: 30 to 50 Minutes
--- NOTE | 2016-12-12 18:47 | XCELERA REPORT ---
[address] [address] Transthoracic Echocardiogram Report Name: CHRISTIANE BERNAL Age: 66 yrs Gender: Male : 1950 Patient Status: Inpatient Patient Location: [place] [address]^A Study Date: 12/12/2016 04:27 PM Height: 71 in Weight: 137 lb BSA: 1.8 m2 Procedure: A complete two-dimensional transthoracic echocardiogram was performed (2D, M-mode, spectral and color flow Doppler). The study was technically difficult with many images being suboptimal in quality. Reason For Study: Chest pain Ordering Physician: TAMMIE JUARES Performed By: Alexa Ledesma Interpretation Summary The left ventricular ejection fraction is within normal limits. There is mild concentric left ventricular hypertrophy. The left ventricle is grossly normal size. Doppler measurements suggest pseudonormalized left ventricular relaxation, which is associated with grade II/IV or mild to moderate diastolic dysfunction Wall motion cannot be accurately commented on, but no definite regional wall motion abnormalities noted. The right ventricular systolic function is normal. The left atrial size is normal. The right atrium is normal in size There is a moderate amount of mitral regurgitation There is no mitral valve stenosis. No aortic regurgitation is present. There is no aortic valve stenosis There is a trace or physiologic amount of tricuspid regurgitation There is no tricuspid stenosis. There is no pericardial effusion. MMode/2D Measurements & Calculations RVDd: 2.6 cm LVIDd: 3.6 cm FS: 34.6 % Ao root diam: 2.3 cm IVSd: 1.2 cm LVIDs: 2.4 cm EDV(Teich): 54.9 ml LVPWd: 1.1 cm ESV(Teich): 19.4 ml Ao root area: 4.2 cm2 EF(Teich): 64.7 % LA dimension: 3.1 cm Doppler Measurements & Calculations MV E max antonio: MV P1/2t max antonio: Ao V2 max: LV V1 max P.2 cm/sec 61.2 cm/sec 105.2 cm/sec 3.6 mmHg MV A max antonio: MV P1/2t: 79.9 msec Ao max PG: LV V1 max: 86.9 cm/sec 4.4 mmHg 94.8 cm/sec MV E/A: 0.70 MVA(P1/2t): 2.8 cm2 MV dec slope: 224.3 cm/sec2 PA V2 max: TR max antonio: 91.8 cm/sec 145.0 cm/sec PA max PG: TR max P.4 mmHg 3.4 mmHg Left Ventricle The left ventricle is grossly normal size. There is mild concentric left ventricular hypertrophy. The left ventricular ejection fraction is within normal limits. Doppler measurements suggest pseudonormalized left ventricular relaxation, which is associated with grade II/IV or mild to moderate diastolic dysfunction. Wall motion cannot be accurately commented on, but no definite regional wall motion abnormalities noted. Right Ventricle The right ventricle is grossly normal size. There is normal right ventricular wall thickness. The right ventricular systolic function is normal. Atria The right atrium is normal in size. The left atrial size is normal. Interarterial septum not well visualized and not well dopplered. Cannot comment on ASD/PFO presence. Mitral Valve The mitral valve is grossly normal. There is no mitral valve stenosis. There is a moderate amount of mitral regurgitation. Aortic Valve The aortic valve is grossly normal. There is no aortic valve stenosis. No aortic regurgitation is present. Tricuspid Valve The tricuspid valve is not well visualized secondary to technical limitations. There is no tricuspid stenosis. There is a trace or physiologic amount of tricuspid regurgitation. Pulmonic Valve The pulmonic valve is not well visualized. Great Vessels The aortic root is not well visualized. The inferior vena cava appeared normal and decreased > 50% with respiration (RAP 5-10 mmHg). Effusions There is no pericardial effusion. : TAMMIE JUARES Shyamal
--- NOTE | 2016-12-12 20:16 | EKG REPORT ---
SEVERITY:- ABNORMAL ECG - SINUS RHYTHM RIGHT ATRIAL ABNORMALITY ST ELEVATION SUGGESTS PERICARDITIS : Confirmed by: Ambreen Lester MD 12-Dec-2016 20:15:56
--- NOTE | 2016-12-12 20:16 | EKG REPORT ---
SEVERITY:- ABNORMAL ECG - SINUS RHYTHM RIGHT ATRIAL ABNORMALITY BORDERLINE T ABNORMALITIES, LATERAL LEADS : Confirmed by: Ambreen Lester MD 12-Dec-2016 20:16:02
[2016-12-12] MEDS ORDERED: (PENDING PHARMACY ID) (Fluticasone/Vilanterol [Breo Ellipta 200-25 Mcg Inh] 1 PUFF) IN SCH (20:30)
[2016-12-12] MEDS: CALCIUM CARBONATE 500 MG TAB.CHEW PO SCH (21:41)
[2016-12-12] MEDS: ACETAMINOPHEN 325 MG TABLET PO PRN (21:41)
[2016-12-12] MEDS: PHENOBARBITAL 32.4 MG TABLET PO SCH (21:42)
[2016-12-12] MEDS ORDERED: MIRTAZAPINE 15 MG TABLET PO SCH (22:00)
[2016-12-13] MEDS: PHENOBARBITAL 32.4 MG TABLET PO SCH ×2 (05:42→14:54)
[2016-12-13] MEDS: CALCIUM CARBONATE 500 MG TAB.CHEW PO SCH ×2 (05:42→14:52)
[2016-12-13] MEDS ORDERED: LANSOPRAZOLE 30 MG TAB.RAP.DR PO SCH (06:00)
[2016-12-13 06:05] LABS: ABSOLUTE EOSINOPHILS # (AUTO) 0.1 10^3/uL (0.0-0.6); ABSOLUTE LYMPHOCYTES (AUTO) 1.7 10^3/uL (0.5-4.7); ABSOLUTE MONOCYTES (AUTO) 0.6 10^3/uL (0.1-1.4); ABSOLUTE NEUT (AUTO) 1.3 10^3/uL (1.7-8.2); BASOPHILS % (AUTO) 0.7 % (0-2); EOSINOPHILS % (AUTO) 2.7 % (0-6); HEMATOCRIT 34.4 % (37.9-51.0); HEMOGLOBIN 12.1 g/dL (13.5-17.0); HGB HCT DIFFERENCE 1.9; LYMPHOCYTES % (AUTO) 44.8 % (13-45); MEAN CORPUSCULAR HEMOGLOBIN 33.1 pg (27.0-33.4); MEAN CORPUSCULAR HGB CONC 35.3 g/dL (32.0-36.0); MEAN CORPUSCULAR VOLUME 94 fl (80-97); MONOCYTES % (AUTO) 16.9 % (3-13); RED BLOOD COUNT 3.66 10^6/uL (4.35-5.55); RED CELL DISTRIBUTION WIDTH 12.9 % (11.5-14.0); SEGMENTED NEUTROPHILS % (AUTO) 34.9 % (42-78); WHITE BLOOD COUNT 3.7 10^3/uL (4.0-10.5)
[2016-12-13 06:22] LABS: ALANINE AMINOTRANSFERASE 43 U/L (21-72); ALBUMIN 4.2 g/dL (3.5-5.0); ALKALINE PHOSPHATASE 91 U/L (38-126); ANION GAP 12 (5-19); ASPARTATE AMINO TRANSFERASE 26 U/L (17-59); BILIRUBIN,DIRECT 0.5 mg/dL (0.0-0.4); BILIRUBIN,TOTAL 0.6 mg/dL (0.2-1.3); BLOOD UREA NITROGEN 7 mg/dL (7-20); CALCIUM 9.3 mg/dL (8.4-10.2); CARBON DIOXIDE 28 mmol/L (22-30); CHLORIDE 90 mmol/L (98-107); CREATININE RESULT 0.58 mg/dL (0.52-1.25); GLUCOSE 75 mg/dL (75-110); MAGNESIUM 1.7 mg/dL (1.6-2.3); PHOSPHORUS 3.9 mg/dL (2.5-4.5); POTASSIUM 4.2 mmol/L (3.6-5.0); SODIUM 130.3 mmol/L (137-145); TOTAL PROTEIN 6.7 g/dL (6.3-8.2)
[2016-12-13 07:25] LABS: THYROID STIMULATING HORMONE 1.88 uIU/mL (0.47-4.68)
[2016-12-13] MEDS ORDERED: (PENDING PHARMACY ID) (Citalopram Hydrobromide [Celexa 10 Mg Tablet] 10 MG) PO SCH (10:00)
[2016-12-13] MEDS ORDERED: POLYETHYLENE GLYCOL 1 GM PO SCH (10:00)
[2016-12-13] MEDS ORDERED: PREDNISONE 10 MG TABLET PO SCH (10:00)
[2016-12-13] MEDS ORDERED: PHENYTOIN SODIUM EXTENDED 100 MG CAPSULE PO SCH (10:00)
[2016-12-13] MEDS ORDERED: POLYETHYLENE GLYCOL 3350 POWDER 17 GM/1 PACKET PO SCH (10:00)
[2016-12-13] MEDS ORDERED: DILTIAZEM HCL 240 MG PO SCH (10:00)
[2016-12-13] MEDS ORDERED: CITALOPRAM HYDROBROMIDE 20 MG TABLET PO SCH (10:00)
[2016-12-13] MEDS ORDERED: THIAMINE HCL 100 MG TABLET PO SCH (10:00)
[2016-12-13] MEDS ORDERED: TIOTROPIUM BROMIDE DPI 5 CAP/KIT (18 MCG/CAP) IH SCH (10:00)
[2016-12-13] MEDS ORDERED: (PENDING PHARMACY ID) (Fluticasone/Vilanterol [Breo Ellipta 200-25 Mcg Inh] 1 PUFF) IN SCH (10:00)
[2016-12-13] MEDS ORDERED: ASPIRIN 81 MG TABLET, CHEWABLE PO SCH (10:00)
[2016-12-13] MEDS ORDERED: DILTIAZEM HCL 240 MG CAPSULE.CR PO SCH (10:00)
[2016-12-13] MEDS: ACETAMINOPHEN 325 MG TABLET PO PRN (10:44)
[2016-12-13 12:46] VITALS: BP 141/76
--- NOTE | 2016-12-13 14:35 | PDOC DISCHARGE SUMMARY ---
General - Admit/Disc Date/PCP Admission Date/Primary Care Provider: 12/12/16 16:01 Discharge Date: 12/13/16 - Discharge Diagnosis (1) Chest pain Is this a current diagnosis for this admission?: Yes Summary: Suspect atypical chest pain: Patient refused nuclear stress test. Patient's 2D echo was reviewed and did not demonstrate any abnormalities. Patient's troponins have been negative. Patient will be arranged for outpatient stress test. (2) Protein-calorie malnutrition, moderate Is this a current diagnosis for this admission?: Yes Summary: Supplemental drinks (3) Pancytopenia Is this a current diagnosis for this admission?: Yes Summary: Secondary to seizure medication: Patient will need to follow-up with neurology within 1-2 weeks. (4) Alcoholism Is this a current diagnosis for this admission?: Yes Summary: Supportive (5) Seizure disorder Is this a current diagnosis for this admission?: Yes Summary: No seizure activity during this hospitalization. (6) Musculoskeletal pain Is this a current diagnosis for this admission?: Yes Summary: Supportive care - Additional Information Resuscitation Status: Do Not Resuscitate Discharge Diet: Cardiac Discharge Activity: Activity As Tolerated Home Medications: Aspirin [Aspirin 81 mg Chewable Tablet] 81 mg PO DAILY 12/12/16 Calcium Carbonate [Constantin-Gest] 200 mg PO Q8H 12/12/16 Citalopram Hydrobromide [Celexa 10 mg Tablet] 10 mg PO DAILY 12/12/16 Diltiazem HCl [Cardizem Cd] 240 mg PO DAILY 12/12/16 Fluticasone/Vilanterol [Breo Ellipta 200-25 Mcg INH] 1 puff IN DAILY 12/12/16 Ibuprofen [Motrin 800 mg Tablet] 800 mg PO Q8 12/12/16 Mirtazapine 7.5 mg PO QHS 12/12/16 Omeprazole 20 mg PO DAILY 12/12/16 Phenobarbital 32.4 mg PO Q8 12/12/16 Phenytoin Sodium Extended [Dilantin 100 mg Capsule.er] 400 mg PO DAILY 12/12/16 Polyethylene Glycol [Polyox Wsr-301] 1 gm PO DAILY 12/12/16 Pravastatin Sodium [Pravachol] 40 mg PO QPM 12/12/16 Prednisone [Deltasone 10 mg Tablet] 10 mg PO DAILY 12/12/16 Thiamine HCl [Thiamine 100 mg Tablet] 100 mg PO DAILY 12/12/16 Tiotropium [place] [Spiriva Handihaler 18 mcg/dose (30 Dose)] 1 cap IN DAILY History of Present Illness Patient complains of: Chest pain History of Present Illness: CHRISTIANE BERNAL is a 66 year old male presents with complaint of chest pain which started earlier today. Pt states that he is not having chest pain currently. Pt states that he did not have nausea/vomiting. Pt denies fever. Pt is a poor historian. Hospital Course Hospital Course: Patient was admitted to the hospital for chest pain. Patient's troponins were negative. EKG did not demonstrate any acute changes. Patient was scheduled for nuclear stress test which he declined. Patient's 2D echo demonstrated no acute findings. Patient will be arranged for stress test as outpatient. Patient was noted to have hyponatremia which is chronic for him which is most likely medication related patient was also noted to have pancytopenia which is most likely secondary to patient's seizure medication. Patient will need to follow-up with outpatient neurologist for pancytopenia due to seizure medication. And patient will need to follow-up with cardiology for outpatient stress test. On encounter this morning patient reported that his body hurts all over. Patient will need a follow-up with outpatient physician for these types of complaints. Physical Exam Vital Signs: Temp Pulse Resp BP Pulse Ox 98.4 F 89 12 141/76 H 95 12/13/16 12:17 12/13/16 12:17 12/13/16 12:17 12/13/16 12:17 12/13/16 12:17 Intake & Output 12/12/16 12/13/16 12/14/16 06:59 06:59 06:59 Intake Total 300 Output Total 275 Balance 25 Weight 62.9 kg General appearance: PRESENT: no acute distress, well-developed, well-nourished Head exam: PRESENT: atraumatic, normocephalic Eye exam: PRESENT: conjunctiva pink, EOMI. ABSENT: scleral icterus Ear exam: PRESENT: normal external ear exam Mouth exam: PRESENT: moist, tongue midline Neck exam: ABSENT: carotid bruit, JVD, lymphadenopathy, thyromegaly Respiratory exam: PRESENT: clear to auscultation roberta. ABSENT: rales, rhonchi, wheezes Cardiovascular exam: PRESENT: RRR. ABSENT: diastolic murmur, rubs, systolic murmur Pulses: PRESENT: normal dorsalis pedis pul Vascular exam: PRESENT: normal capillary refill GI/Abdominal exam: PRESENT: normal bowel sounds, soft. ABSENT: distended, guarding, mass, organolmegaly, rebound, tenderness Rectal exam: PRESENT: deferred Extremities exam: PRESENT: full ROM. ABSENT: calf tenderness, clubbing, pedal edema Musculoskeletal exam: PRESENT: other - Positive for chest wall pain to palpation in all quadrants right and left Neurological exam: PRESENT: alert, awake, oriented to person, oriented to place , oriented to time, oriented to situation, CN II-XII grossly intact. ABSENT: motor sensory deficit Psychiatric exam: PRESENT: appropriate affect, normal mood. ABSENT: homicidal ideation, suicidal ideation Skin exam: PRESENT: dry, intact, warm. ABSENT: cyanosis, rash Results Laboratory Results: 12/13/16 05:22 12/13/16 05:22 12/13/16 12/13/16 12/13/16 05:22 05:22 05:22 WBC 3.7 L RBC 3.66 L Hgb 12.1 L Hct 34.4 L MCV 94 MCH 33.1 MCHC 35.3 RDW 12.9 Plt Count 275 Seg Neutrophils % 34.9 L Lymphocytes % 44.8 Monocytes % 16.9 H Eosinophils % 2.7 Basophils % 0.7 Absolute Neutrophils 1.3 L Absolute Lymphocytes 1.7 Absolute Monocytes 0.6 Absolute Eosinophils 0.1 Absolute Basophils 0.0 Sodium 130.3 L Potassium 4.2 Chloride 90 L Carbon Dioxide 28 Anion Gap 12 BUN 7 Creatinine 0.58 Est GFR ( Amer) > 60 Est GFR (Non-Af Amer) > 60 Glucose 75 Calcium 9.3 Phosphorus 3.9 Magnesium 1.7 Total Bilirubin 0.6 AST 26 ALT 43 Alkaline Phosphatase 91 Total Protein 6.7 Albumin 4.2 TSH 1.88 Free T4 1.18 12/12/16 12/12/16 12/13/16 16:55 20:25 04:24 Troponin I < 0.012 < 0.012 Cancelled 12/13/16 07:23 Troponin I < 0.012 Impressions: Chest X-Ray 12/12/16 09:57 IMPRESSION: Marked chronic lung changes with no acute cardiopulmonary disease. Plan Time Spent: Less than 30 Minutes
[2016-12-13] MEDS ORDERED: (PENDING PHARMACY ID) (Pravastatin Sodium [Pravachol] 40 MG) PO SCH (18:00)
[2016-12-13] MEDS ORDERED: ATORVASTATIN CALCIUM 10 MG TABLET PO SCH (18:00)
== END 2016-12-13 17:00 | disposition short-term general hospital (02) ==
LOC: ER 09:46 → EH 16:01 → INTOOBSV 16:01 → EH 16:29 → UNDOADMIN 16:29 → 4N 17:42
DX: R07.9 Chest pain, unspecified (principal); Z53.29 Procedure and treatment not carried out because of patient's decision for other reasons; E44.0 Moderate protein-calorie malnutrition; Z68.1 Body mass index [BMI] 19.9 or less, adult; D61.811 Other drug-induced pancytopenia; T50.995A Adverse effect of other drugs, medicaments and biological substances, initial encounter; F10.20 Alcohol dependence, uncomplicated; G40.909 Epilepsy, unspecified, not intractable, without status epilepticus; M79.1 Myalgia; E87.1 Hypo-osmolality and hyponatremia; K21.9 Gastro-esophageal reflux disease without esophagitis; F17.200 Nicotine dependence, unspecified, uncomplicated; E78.5 Hyperlipidemia, unspecified; I10 Essential (primary) hypertension; Z66 Do not resuscitate; Z79.899 Other long term (current) drug therapy; Z79.82 Long term (current) use of aspirin; Z82.49 Family history of ischemic heart disease and other diseases of the circulatory system
CPT/HCPCS: 93005; 99285; 36415 ×2; 87086; 84439; 82553; 82550; 83735; 84100; 84443; 80186; 80185; 80184; 85025 ×2; 80053 ×2; 81001; 84484 ×2; 83036; 93306; 71010; 93010; 97163; 97167; J3490 ×4; J7512; G8978; G8979; G8987; G8988

== ENCOUNTER 2016-12-16 13:11 | Emergency (ER) | payer MEDICARE, MEDICAID ==
--- NOTE | 2016-12-16 14:26 | ER Document Report ---
ED General - General Mode of Arrival: Ambulatory Information source: Patient TRAVEL OUTSIDE OF THE U.S. IN LAST 30 DAYS: No <JOSE DE JESUS ETIENNE - Last Filed: 12/16/16 14:20> <EFFIE CLEVELAND - Last Filed: 12/16/16 15:11> - General Chief Complaint: Fall Stated Complaint: FALL,NO COMPLIANTS Time Seen by Provider: 12/16/16 13:57 Notes: Patient is a 66-year-old male that presents to the emergency department today with complaints of a fall. Patient states he was coming back from the bathroom when he attempted to get out of his wheelchair and he fell backwards. Patient indicates the place of impact was his left posterior parietal area. Patient only complains of a frontal headache now. History is limited. (JOSE DE JESUS ETIENNE) - Related Data Allergies/Adverse Reactions: Penicillins Allergy (Verified 12/12/16 11:06) Anaphylaxis strawberry [[place]] Allergy (Verified 12/12/16 11:06) Rash Past Medical History - General Information source: Patient - Social History Smoking Status: Former Smoker Cigarette use (# per day): No Frequency of alcohol use: None Drug Abuse: None [facility] with: [facility] Family History: Reviewed & Not Pertinent, DM, Hypertension - Past Medical History Cardiac Medical History: Reports: Hx Hypercholesterolemia, Hx Hypertension Pulmonary Medical History: Reports: Hx COPD, Hx Pneumonia Neurological Medical History: Reports: Hx Seizures GI Medical History: Reports: Hx Gastroesophageal Reflux Disease Surgical Hx: Negative - Immunizations Hx Diphtheria, Pertussis, Tetanus Vaccination: Yes Hx Pneumococcal Vaccination: 03/27/12 <JOSE DE JESUS ETIENNE - Last Filed: 12/16/16 14:20> Review of Systems - Review of Systems Constitutional: No symptoms reported EENT: No symptoms reported Cardiovascular: No symptoms reported Respiratory: No symptoms reported Gastrointestinal: No symptoms reported Genitourinary: No symptoms reported Male Genitourinary: No symptoms reported Musculoskeletal: No symptoms reported Skin: No symptoms reported Hematologic/Lymphatic: No symptoms reported Neurological/Psychological: See HPI, Headaches -: Yes All other systems reviewed and negative <JOSE DE JESUS ETIENNE - Last Filed: 12/16/16 14:20> Physical Exam <JOSE DE JESUS ETIENNE - Last Filed: 12/16/16 14:20> <EFFIE CLEVELAND - Last Filed: 12/16/16 15:11> - Notes Notes: Physical Exam: General: At baseline. HEENT: Normocephalic. Atraumatic. PERRL. Extraocular movements intact. Oropharynx clear. Indicates area of impact was left posterior parietal area but complains of frontal headache. Neck: Supple. Non-tender. Respiratory: No respiratory distress. Diffuse wheezing, rhonchi, and congested cough. Cardiovascular: Regular rate and rhythm. Abdominal: Normal Inspection. Non-tender. No distension. Normal Bowel Sounds. Back: Non-tender. No deformity or step off. Extremities: Moves all four extremities. Upper extremities: Normal inspection. Normal ROM. Lower extremities: Normal inspection. No edema. Normal ROM. Neurological: Demented at baseline. Psychological: Unable to assess. Skin: Warm. Dry. Normal color. (JOSE DE JESUS ETIENNE) Course - Diagnostic Test Radiology reviewed: Image reviewed, Reports reviewed - CT scan of the head is unremarkable. <EFFIE CLEVELAND - Last Filed: 12/16/16 15:11> Discharge <JOSE DE JESUS ETIENNE - Last Filed: 12/16/16 14:20> <EFFIE CLEVELAND - Last Filed: 12/16/16 15:11> - Discharge Clinical Impression: Fall involving wheelchair Qualifiers: Encounter type: initial encounter Qualified Code(s): W05.0XXA - Fall from non- moving wheelchair, initial encounter Condition: Stable Disposition: HOME, SELF-CARE Additional Instructions: No significant injuries were detected during your evaluation for the fall you suffered. Return to emergency room if any new or concerning symptoms develop. RETURN TO THE EMERGENCY ROOM IF ANY NEW OR WORSENING SYMPTOMS. Scribe Attestation: 12/16/16 15:11 I personally performed the services described in the documentation, reviewed and edited the documentation which was dictated to the scribe in my presence, and it accurately records my words and actions. (EFFIE CLEVELAND) Scribe Documentation - Scribe Written by Oz:: [place], 12/16/2016 1426 acting as scribe for :: Ganesh <JOSE DE JESUS ETIENNE - Last Filed: 12/16/16 14:20>
--- NOTE | 2016-12-16 14:42 | RADIOLOGY REPORT (SQ) ---
EXAM DESCRIPTION: CT HEAD WITHOUT COMPLETED DATE/TIME: 12/16/2016 2:28 pm REASON FOR STUDY: fall, hit head COMPARISON: CT brain 01/24/2014 TECHNIQUE: Axial images acquired through the brain without intravenous contrast. Images reviewed wi th bone, brain and subdural windows. Images stored on PACS. All CT scanners at this facility use dose modulation, iterative reconstruction, and/or weight based d osing when appropriate to reduce radiation dose to as low as reasonably achievable (ALARA). [facility]: Dose Right [facility]: CareDose [facility]: Dose Right [facility]: Teradose 4D [facility]: Smart [employer] RADIATION DOSE: Up-to-date CT equipment and radiation dose reduction techniques were employed. CTDIv ol: 64.6 mGy. DLP: 1163 mGy-cm. mGy. LIMITATIONS: None. FINDINGS: VENTRICLES: Normal size and contour. CEREBRUM: No masses. No hemorrhage. No midline shift. No evidence for acute infarction. Old infarc ts are present in the right frontal perisylvian cortex and subcortical white matter, of with moderate bifrontal and biparietal small vessel chronic ischemic change. CEREBELLUM: No masses. No hemorrhage. No alteration of density. No evidence for acute infarction. EXTRAAXIAL SPACES: No fluid collections. No masses. ORBITS AND GLOBE: No intra- or extraconal masses. Normal contour of globe without masses. CALVARIUM: No fracture. PARANASAL SINUSES: Minimal bilateral ethmoid air cell fluid. SOFT TISSUES: No mass or hematoma. OTHER: No other significant finding. IMPRESSION: No acute findings. EVIDENCE OF ACUTE STROKE: NO. COMMENT: Quality ID # [id number]: Final reports with documentation of one or more dose reduction techniques (e.g., Automated exposure control, adjustment of the mA and/or kV according to patient size, use of iterative reconstruction technique) TECHNICAL DOCUMENTATION: JOB ID: [id number] [employer]- All Rights Reserved
[2016-12-16 17:49] VITALS: BP 170/89
== END 2016-12-16 17:44 | disposition home or self-care (01) ==
LOC: ER 13:11
DX: R51 Headache (principal); W05.0XXA Fall from non-moving wheelchair, initial encounter; Z88.0 Allergy status to penicillin; Z87.891 Personal history of nicotine dependence; E78.00 Pure hypercholesterolemia, unspecified; I10 Essential (primary) hypertension
CPT/HCPCS: 70450; 99284

== ENCOUNTER 2016-12-19 16:04 | Emergency (ER) | payer MEDICARE, MEDICAID ==
--- NOTE | 2016-12-19 16:58 | ER Document Report ---
ED Fall - General Chief Complaint: Fall Stated Complaint: WEAKNESS Time Seen by Provider: 12/19/16 16:23 Mode of Arrival: Medic Information source: Patient Notes: This is a 66-year-old male alf patient that apparently had a fall earlier today. No loss of consciousness. By protocol patient was brought to the emergency department for evaluation. Had a small abrasion on her right knee. Apparently hit his right forehead. Patient denies any symptoms at this time. TRAVEL OUTSIDE OF THE [place] IN LAST 30 DAYS: No - Related data Allergies/Adverse Reactions: Penicillins Allergy (Verified 12/19/16 16:43) Anaphylaxis strawberry [[place]] Allergy (Verified 12/19/16 16:43) Rash Past Medical History - General Information source: Transfer Record - Social History Smoking Status: Unknown if Ever Smoked Family History: DM, Hypertension - Past Medical History Cardiac Medical History: Reports: Hx Hypercholesterolemia, Hx Hypertension Pulmonary Medical History: Reports: Hx COPD, Hx Pneumonia Neurological Medical History: Reports: Hx Seizures GI Medical History: Reports: Hx Gastroesophageal Reflux Disease - Immunizations Hx Diphtheria, Pertussis, Tetanus Vaccination: Yes Hx Pneumococcal Vaccination: 03/27/12 Review of Systems - Review of Systems Constitutional: No symptoms reported EENT: No symptoms reported Cardiovascular: No symptoms reported Respiratory: No symptoms reported Gastrointestinal: No symptoms reported Genitourinary: No symptoms reported Male Genitourinary: No symptoms reported Musculoskeletal: No symptoms reported, See HPI Skin: No symptoms reported, See HPI Hematologic/Lymphatic: No symptoms reported Neurological/Psychological: No symptoms reported Physical Exam - Vital signs Vitals: Temp Pulse Resp BP Pulse Ox 98.2 F 83 16 148/78 H 100 12/19/16 16:12 12/19/16 16:12 12/19/16 16:12 12/19/16 16:12 12/19/16 16:12 Interpretation: Normal - General General appearance: Appears well, Alert - HEENT Head: Normocephalic, Atraumatic Eyes: Normal Pupils: PERRL - Respiratory Respiratory status: No respiratory distress Chest status: Nontender Breath sounds: Normal Chest palpation: Normal - Cardiovascular Rhythm: Regular Heart sounds: Normal auscultation Murmur: No - Abdominal Inspection: Normal Distension: No distension Bowel sounds: Normal Tenderness: Nontender Organomegaly: No organomegaly - Back Back: Normal, Nontender - Extremities General upper extremity: Normal inspection, Nontender, Normal color, Normal ROM , Normal temperature General lower extremity: Normal inspection, Nontender, Normal color, Normal ROM , Normal temperature, Normal weight bearing. No: Katja's sign - Neurological Neuro grossly intact: Yes Cognition: Normal Orientation: AAOx4 [place] Coma Scale Eye Opening: Spontaneous [place] Coma Scale Verbal: Oriented [place] Coma Scale Motor: Obeys Commands [place] Coma Scale Total: 15 Speech: Normal Motor strength normal: LUE, RUE, LLE, RLE Sensory: Normal - Psychological Associated symptoms: Normal affect, Normal mood - Skin Skin Temperature: Warm - Abrasion on the right knee. There is a small contusion on the right forehead Skin Moisture: Dry Skin Color: Normal Course - Re-evaluation Re-evalutation: 12/19/16 22:07 Imaging studies unremarkable. Patient was discharged in stable condition. Imaging studies are unremarkable. Patient will be discharged back to alf in stable condition per Head CT 12/19/16 16:59 IMPRESSION: Involutional changes of aging with chronic microvascular ischemia and with no acute intracranial findings. EVIDENCE OF ACUTE STROKE: NO. Knee X-Ray 12/19/16 16:59 IMPRESSION: No acute osseous abnormality. - Vital Signs Vital signs: Temp Pulse Resp BP Pulse Ox 98.2 F 83 16 148/78 H 100 12/19/16 16:12 12/19/16 16:12 12/19/16 16:12 12/19/16 16:12 12/19/16 16:12 Discharge - Discharge Clinical Impression: Abrasion Head injury Qualifiers: Encounter type: initial encounter Qualified Code(s): S09.90XA - Unspecified injury of head, initial encounter Contusion of right knee Qualifiers: Encounter type: initial encounter Qualified Code(s): S80.01XA - Contusion of right knee, initial encounter Disposition: HOME, SELF-CARE Instructions: Contusion ([facility]), Head Injury Precautions ([facility])
--- NOTE | 2016-12-19 18:04 | RADIOLOGY REPORT (SQ) ---
EXAM DESCRIPTION: CT HEAD WITHOUT COMPLETED DATE/TIME: 12/19/2016 5:50 pm REASON FOR STUDY: fall COMPARISON: 12/16/2016 TECHNIQUE: Axial images acquired through the brain without intravenous contrast. Images reviewed wi th bone, brain and subdural windows. Images stored on PACS. All CT scanners at this facility use dose modulation, iterative reconstruction, and/or weight based d osing when appropriate to reduce radiation dose to as low as reasonably achievable (ALARA). [facility]: Dose Right [facility]: CareDose [facility]: Dose Right [facility]: Teradose 4D [facility]: [employer] RADIATION DOSE: Up-to-date CT equipment and radiation dose reduction techniques were employed. CTDIv ol: 64.6 mGy. DLP: 1034 mGy-cm. mGy. LIMITATIONS: None. FINDINGS: VENTRICLES: Normal size and contour. CEREBRUM: No masses. No hemorrhage. No midline shift. No evidence for acute infarction. 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 Cortical atrophy is present. CEREBELLUM: No masses. No hemorrhage. No alteration of density. No evidence for acute infarction. EXTRAAXIAL SPACES: No fluid collections. No masses. ORBITS AND GLOBE: No intra- or extraconal masses. Normal contour of globe without masses. CALVARIUM: No fracture. PARANASAL SINUSES: No fluid or mucosal thickening. SOFT TISSUES: No mass or hematoma. OTHER: No other significant finding. IMPRESSION: Involutional changes of aging with chronic microvascular ischemia and with no acute intr acranial findings. EVIDENCE OF ACUTE STROKE: NO. COMMENT: Quality ID # [id number]: Final reports with documentation of one or more dose reduction techniques (e.g., Automated exposure control, adjustment of the mA and/or kV according to patient size, use of iterative reconstruction technique) TECHNICAL DOCUMENTATION: JOB ID: [id number] [employer]- All Rights Reserved
--- NOTE | 2016-12-19 18:12 | RADIOLOGY REPORT (SQ) ---
EXAM DESCRIPTION: KNEE RIGHT 2 VIEWS COMPLETED DATE/TIME: 12/19/2016 5:58 pm REASON FOR STUDY: fall COMPARISON: None. NUMBER OF VIEWS: Two views. TECHNIQUE: AP and lateral radiographic images acquired of the right knee. LIMITATIONS: None. FINDINGS: MINERALIZATION: Normal. BONES: No acute fracture or dislocation. No worrisome bone lesions. JOINT: No effusion. SOFT TISSUES: No soft tissue swelling. No radio-opaque foreign body. OTHER: No other significant finding. IMPRESSION: No acute osseous abnormality. TECHNICAL DOCUMENTATION: JOB ID: [id number] [employer] All Rights Reserved
[2016-12-19 23:03] VITALS: BP 110/64
== END 2016-12-19 23:35 | disposition home or self-care (01) ==
LOC: ER 16:04
DX: S00.83XA Contusion of other part of head, initial encounter (principal); S80.01XA Contusion of right knee, initial encounter; W19.XXXA Unspecified fall, initial encounter; Y93.89 Activity, other specified; Y92.199 Unspecified place in other specified residential institution as the place of occurrence of the external cause; I67.82 Cerebral ischemia; I10 Essential (primary) hypertension; J44.9 Chronic obstructive pulmonary disease, unspecified; Z91.018 Allergy to other foods; Z87.892 Personal history of anaphylaxis; Z88.0 Allergy status to penicillin
CPT/HCPCS: 70450; 82962; 99285

== ENCOUNTER 2016-12-21 12:46 | Emergency (ER) | payer OTHER, MEDICARE, MEDICAID ==
--- NOTE | 2016-12-21 12:58 | ER Document Report ---
ED General - General Chief Complaint: Fall Stated Complaint: FALL/SHOULDER PAIN Time Seen by Provider: 12/21/16 12:50 Mode of Arrival: Medic Information source: Emergency Med Personnel, [facility] Records Cannot obtain history due to: Dementia TRAVEL OUTSIDE OF THE [place] IN LAST 30 DAYS: No - HPI Patient complains to provider of: fall Onset: Just prior to arrival Onset/Duration: Sudden Associated symptoms: None Exacerbated by: Denies Relieved by: Denies Similar symptoms previously: Yes Recently seen / treated by doctor: Yes Notes: Patient is a 66-year-old man who lives at a local [facility]. Patient has been seen here numerous times for falls. Patient presents today with right shoulder pain secondary to a fall. Patient is a very poor historian. Medical records have been reviewed. Patient has been seen here on 11/22, , 12/06, 12/12, 12/16, and 12/19. No reported LOC. Patient denies neck pain. EMS, patient attempts to get out of bed without assistance and fell. Patient is wheelchair-bound. - Related Data Allergies/Adverse Reactions: Penicillins Allergy (Verified 12/21/16 12:57) Anaphylaxis strawberry [[place]] Allergy (Verified 12/21/16 12:57) Rash Past Medical History - General Information source: Emergency Med Personnel, [facility] Records Cannot obtain history due to: Dementia - Social History Smoking Status: Former Smoker Family History: DM, Hypertension - Past Medical History Cardiac Medical History: Reports: Hx Hypercholesterolemia, Hx Hypertension Pulmonary Medical History: Reports: Hx COPD, Hx Pneumonia Neurological Medical History: Reports: Hx Seizures GI Medical History: Reports: Hx Gastroesophageal Reflux Disease - Immunizations Hx Diphtheria, Pertussis, Tetanus Vaccination: Yes Hx Pneumococcal Vaccination: 03/27/12 Review of Systems - Review of Systems -: Yes ROS unobtainable due to patient's medical condition Physical Exam - Vital signs Vitals: Temp Pulse Resp BP Pulse Ox 97.8 F 89 18 135/96 H 98 12/21/16 12:50 12/21/16 12:50 12/21/16 12:50 12/21/16 12:50 12/21/16 12:50 Interpretation: Normal - General General appearance: Appears well, Alert Notes: Chronically ill-appearing - HEENT Head: Normocephalic, Atraumatic Eyes: Normal Pupils: PERRL - Respiratory Respiratory status: No respiratory distress Chest status: Nontender Breath sounds: Normal Chest palpation: Normal - Cardiovascular Rhythm: Regular Heart sounds: Normal auscultation Murmur: No - Back Back: Normal, Nontender - Extremities General upper extremity: Other - Right shoulder is tender to palpation without gross deformity, he has painful range of motion, strong right radial pulse. left upper extremity is normal General lower extremity: Normal inspection, Normal ROM - Neurological Neuro grossly intact: Yes Cognition: Confused Notes: Baseline mental status based on previous medical records Course - Re-evaluation Re-evalutation: 12/21/16 13:45 X-rays consistent with a nondisplaced distal right clavicle fracture. Will place in sling. Patient [facility]. - Vital Signs Vital signs: Temp Pulse Resp BP Pulse Ox 97.8 F 89 18 135/96 H 98 12/21/16 12:50 12/21/16 12:50 12/21/16 12:50 12/21/16 12:50 12/21/16 12:50 - Diagnostic Test Radiology reviewed: Image reviewed Radiology results interpreted by me: 12/21/16 13:44 distal right clavicle fracture Discharge - Discharge Clinical Impression: Clavicle fracture Condition: Good Disposition: HOME-SNF (ED ONLY) Instructions: Fractured Clavicle ([facility]) Additional Instructions: Wear sling. Follow-up with orthopedics. Only ambulate with assistance. Return to the emergency department if worse or for any other problems.
--- NOTE | 2016-12-21 13:48 | RADIOLOGY REPORT (SQ) ---
EXAM DESCRIPTION: SHOULDER RIGHT 2 OR MORE VIEWS COMPLETED DATE/TIME: 12/21/2016 1:33 pm REASON FOR STUDY: fall COMPARISON: None. NUMBER OF VIEWS: Three views. TECHNIQUE: Internal rotation, external rotation, and Y view images acquired of the right shoulder. LIMITATIONS: None. FINDINGS: MINERALIZATION: Osteopenia distal clavicle and acromion. BONES: Nondisplaced fracture of the distal clavicle. JOINTS: No dislocation. VISUALIZED LUNGS AND RIBS: Old right rib fractures. SOFT TISSUES: No radiopaque foreign body. OTHER: No other significant finding. IMPRESSION: Nondisplaced fracture distal clavicle. TECHNICAL DOCUMENTATION: JOB ID: [id number] [employer]- All Rights Reserved
[2016-12-21 15:45] VITALS: BP 131/69
== END 2016-12-21 15:48 ==
LOC: ER 12:46
DX: S42.001A Fracture of unspecified part of right clavicle, initial encounter for closed fracture (principal); M25.511 Pain in right shoulder; W19.XXXA Unspecified fall, initial encounter; Z87.891 Personal history of nicotine dependence
CPT/HCPCS: 99284

== ENCOUNTER 2016-12-22 14:42 | Emergency (ER) | payer OTHER, MEDICARE, MEDICAID ==
--- NOTE | 2016-12-22 14:52 | ER Document Report ---
ED General - General Stated Complaint: FELL FROM WHEELCHAIR Time Seen by Provider: 12/22/16 14:44 Mode of Arrival: Medic Information source: Patient, Emergency Med Personnel, [facility], [facility] Records Cannot obtain history due to: Dementia TRAVEL OUTSIDE OF THE [place] IN LAST 30 DAYS: No - HPI Patient complains to provider of: fall Onset: Just prior to arrival Onset/Duration: Sudden Associated symptoms: None Exacerbated by: Denies Relieved by: Denies Similar symptoms previously: Yes Recently seen / treated by doctor: Yes Notes: Patient is a 66-year-old male who resides at [facility]. Patient has been seen in this facility 7 times in the last 30 days for falls. Patient was diagnosed with a right clavicular fracture yesterday. Patient apparently was sitting in his wheelchair outside smoking a cigarette when he reportedly threw himself onto the ground from the wheelchair. There is no injury reported by EMS. Patient was sent here to be evaluated due to the fall. - Related Data Allergies/Adverse Reactions: Penicillins Allergy (Verified 12/21/16 12:57) Anaphylaxis strawberry [[place]] Allergy (Verified 12/21/16 12:57) Rash Past Medical History - General Information source: Emergency Med Personnel, [facility], [facility] Records Cannot obtain history due to: Dementia - Social History Smoking Status: Current Every Day Smoker Family History: DM, Hypertension - Past Medical History Cardiac Medical History: Reports: Hx Hypercholesterolemia, Hx Hypertension Pulmonary Medical History: Reports: Hx COPD, Hx Pneumonia Neurological Medical History: Reports: Hx Seizures Renal/ Medical History: Denies: Hx Peritoneal Dialysis GI Medical History: Reports: Hx Gastroesophageal Reflux Disease - Immunizations Hx Diphtheria, Pertussis, Tetanus Vaccination: Yes Hx Pneumococcal Vaccination: 03/27/12 Review of Systems - Review of Systems -: Yes ROS unobtainable due to patient's medical condition Physical Exam - Vital signs Interpretation: Normal - Notes Notes: Chronically ill-appearing, unchanged from yesterday's emergency department visit - General General appearance: Appears well, Alert In distress: None - HEENT Head: Normocephalic, Atraumatic Pupils: PERRL - Respiratory Respiratory status: No respiratory distress Chest status: Nontender Breath sounds: Normal - Cardiovascular Rhythm: Regular - Abdominal Inspection: Normal Distension: No distension Bowel sounds: Normal Tenderness: Nontender - Back Back: Normal, Nontender - Extremities General upper extremity: Other - Sling in place from yesterday. Continued tenderness over right clavicle secondary to fracture diagnosed yesterday. General lower extremity: Normal inspection, Nontender - Neurological Neuro grossly intact: Yes Cognition: Normal Orientation: AAOx4 [place] Coma Scale Eye Opening: Spontaneous [place] Coma Scale Verbal: Oriented [place] Coma Scale Motor: Obeys Commands [place] Coma Scale Total: 15 Course - Re-evaluation Re-evalutation: 12/22/16 14:51 There is no obvious injury from the fall out of the wheelchair. Will discharge patient back to [facility]. Discharge - Discharge Clinical Impression: Fall Condition: Good Disposition: HOME, SELF-CARE Instructions: Contusion ([facility]) Additional Instructions: Patient requires close supervision due to the frequency of falls. Follow-up with primary care provider. Return if worse.
[2016-12-22 17:36] VITALS: BP 145/97
== END 2016-12-22 17:41 | disposition home or self-care (01) ==
LOC: ER 14:42
DX: Z04.3 Encounter for examination and observation following other accident (principal); W05.0XXA Fall from non-moving wheelchair, initial encounter; Y93.89 Activity, other specified; R29.6 Repeated falls; I10 Essential (primary) hypertension; J44.9 Chronic obstructive pulmonary disease, unspecified; Z91.018 Allergy to other foods; Z87.892 Personal history of anaphylaxis; Z88.0 Allergy status to penicillin
CPT/HCPCS: 99284

== ENCOUNTER 2017-01-04 21:59 | Emergency (ER) | payer OTHER, MEDICARE, MEDICAID ==
[2017-01-04] MEDS ORDERED: DIPH/PERTUSS(ACELL)/TETANUS VAC/PF 0.5 ML SYR (>=10YO) IM ONE (22:19)
--- NOTE | 2017-01-04 22:27 | ER Document Report ---
ED Fall - General Chief Complaint: Fall Stated Complaint: FALL/NOSE INJURY Time Seen by Provider: 01/04/17 22:18 Mode of Arrival: Stretcher Information source: Patient TRAVEL OUTSIDE OF THE [place] IN LAST 30 DAYS: No - HPI Patient complains to provider of: Fall, head injury, nose laceration Occurred: Just prior to arrival Where: Longterm Location of injury/pain: Face, Head Prehospital interventions: C-collar Notes: Patient is a 66-year-old male sent from local alf for unwitnessed fall with obvious injury to nose, he denies pain or injury elsewhere, he has a history of dementia so history is difficult to obtain otherwise - Related data Allergies/Adverse Reactions: Penicillins Allergy (Verified 01/04/17 22:35) Anaphylaxis strawberry [[place]] Allergy (Verified 01/04/17 22:35) Rash Past Medical History - General Information source: Patient, Outside Facility Records - Social History Smoking Status: Unknown if Ever Smoked Family History: DM, Hypertension - Past Medical History Cardiac Medical History: Reports: Hx Hypercholesterolemia, Hx Hypertension Pulmonary Medical History: Reports: Hx COPD, Hx Pneumonia Neurological Medical History: Reports: Hx Seizures Renal/ Medical History: Denies: Hx Peritoneal Dialysis GI Medical History: Reports: Hx Gastroesophageal Reflux Disease - Immunizations Hx Diphtheria, Pertussis, Tetanus Vaccination: Yes Hx Pneumococcal Vaccination: 03/27/12 Review of Systems - Review of Systems Constitutional: No symptoms reported EENT: Nose pain Cardiovascular: No symptoms reported Respiratory: No symptoms reported Gastrointestinal: No symptoms reported Genitourinary: No symptoms reported Male Genitourinary: No symptoms reported Musculoskeletal: No symptoms reported Skin: See HPI Hematologic/Lymphatic: No symptoms reported Neurological/Psychological: No symptoms reported -: Yes All other systems reviewed and negative Physical Exam - Vital signs Vitals: Temp Pulse Resp BP Pulse Ox 97.7 F 77 18 168/94 H 100 01/04/17 22:05 01/04/17 22:05 01/04/17 22:05 01/04/17 22:05 01/04/17 22:05 Interpretation: Hypertensive - General General appearance: Alert In distress: None - HEENT Head: Normocephalic, Atraumatic Eyes: Normal Conjunctiva: Normal Extraocular movements intact: Yes Eyelashes: Normal Pupils: PERRL Nasal: Other - 1.5 cm T-shaped laceration to the nasal bridge Mouth/Lips: Normal Mucous membranes: Normal Pharynx: Normal Neck: Normal - Respiratory Respiratory status: No respiratory distress Chest status: Nontender Breath sounds: Normal Chest palpation: Normal - Cardiovascular Rhythm: Regular Heart sounds: Normal auscultation Murmur: No - Abdominal Inspection: Normal Distension: No distension Bowel sounds: Normal Tenderness: Nontender Organomegaly: No organomegaly - Back Back: Normal, Nontender - Extremities General upper extremity: Normal inspection, Nontender, Normal color, Normal ROM , Normal temperature General lower extremity: Normal inspection, Nontender, Normal color, Normal ROM , Normal temperature, Normal weight bearing. No: Katja's sign - Neurological Cognition: Confused Orientation: Disoriented to events [place] Coma Scale Eye Opening: Spontaneous [place] Coma Scale Verbal: Confused [place] Coma Scale Motor: Obeys Commands [place] Coma Scale Total: 14 Motor strength normal: LUE, RUE, LLE, RLE Sensory: Normal - Psychological Associated symptoms: Normal affect, Normal mood - Skin Skin Temperature: Warm Skin Moisture: Dry Skin Color: Normal Course - Re-evaluation Re-evalutation: 01/05/17 00:16 Imaging findings are unremarkable, wound was repaired with sutures, tetanus shot was updated, patient was discharged back to alf with instructions for follow-up and wound care - Vital Signs Vital signs: Temp Pulse Resp BP Pulse Ox 97.7 F 77 18 168/94 H 100 01/04/17 22:05 01/04/17 22:05 01/04/17 22:05 01/04/17 22:05 01/04/17 22:05 - Diagnostic Test Radiology reviewed: Image reviewed, Reports reviewed Procedures - Laceration/Wound Repair Nasal bridge Time completed: 00:17 Wound length (cm): 1.5 Wound's Depth, Shape: Other Laceration pre-procedure: Chloraprep applied Anesthetic type: 1% Lidocaine Volume Anesthetic (mLs): 2 Wound explored: Clean Irrigated w/ Saline (mLs): 400 Wound Repaired With: Sutures Suture Size/Type: 5:0, Nylon Number of Sutures: 3 Layer Closure?: No Post-procedure wound care: Sterile dressing applied Post-procedure NV exam normal: Yes Complications: No Adult Head Front/Back picture: 1 - 1.5 cm T-shaped laceration Discharge - Discharge Clinical Impression: Head injury Qualifiers: Encounter type: initial encounter Qualified Code(s): S09.90XA - Unspecified injury of head, initial encounter Fall at alf Qualifiers: Encounter type: initial encounter Qualified Code(s): W19.XXXA - Unspecified fall, initial encounter Laceration of nose Qualifiers: Encounter type: initial encounter Qualified Code(s): S01.21XA - Laceration without foreign body of nose, initial encounter Condition: Stable Disposition: HOME, SELF-CARE Instructions: Antibiotic Ointment Protection ([facility]), Laceration Care ([facility]), Soap Cleansing ([facility]), Tetanus Immunization Given ([facility]) Additional Instructions: Follow up with your primary care provider in 2-3 days for wound check. Keep wound clean and covered with antibiotic ointment and a clean dressing. Gently rinse with warm water and soap twice daily. Sutures to be removed in 7-10 days. Return to the emergency room immediately if symptoms worsen or any additional concerns.
--- NOTE | 2017-01-04 23:12 | RADIOLOGY REPORT (SQ) ---
EXAM DESCRIPTION: CT HEAD WITHOUT COMPLETED DATE/TIME: 01/04/2017 11:01 pm REASON FOR STUDY: injury COMPARISON: 12/28/2016, 12/19/2016, and 12/16/2016 TECHNIQUE: Axial images acquired through the brain without intravenous contrast. Images reviewed wi th bone, brain and subdural windows. Images stored on PACS. All CT scanners at this facility use dose modulation, iterative reconstruction, and/or weight based d osing when appropriate to reduce radiation dose to as low as reasonably achievable (ALARA). [facility]: Dose Right [facility]: CareDose [facility]: Dose Right [facility]: Teradose 4D [facility]: [employer] RADIATION DOSE: Up-to-date CT equipment and radiation dose reduction techniques were employed. CTDIv ol: 64.6 mGy. DLP: 1267 mGy-cm.mGy. LIMITATIONS: None. FINDINGS: VENTRICLES: Prominent. CEREBRUM: Re- demonstration of right frontal encephalomalacia. No masses. No hemorrhage. No midlin e shift. Areas of low density in the white matter most likely due to chronic micro-vascular ischemic change. No evidence for acute infarction. CEREBELLUM: No masses. No hemorrhage. No alteration of density. No evidence for acute infarction. EXTRAAXIAL SPACES: Age-related involutional change. No fluid collections. No masses. ORBITS AND GLOBE: No intra- or extraconal masses. Normal contour of globe without masses. CALVARIUM: No fracture. PARANASAL SINUSES: No fluid or mucosal thickening. SOFT TISSUES: No mass or hematoma. OTHER: No other significant finding. IMPRESSION: No evidence of acute calvarial injury or intracranial hemorrhage. Stable background of ischemic and involutional changes. EVIDENCE OF ACUTE STROKE: NO. TECHNICAL DOCUMENTATION: JOB ID: [id number] Quality ID # [id number]: Final reports with documentation of one or more dose reduction techniques (e.g., Au tomated exposure control, adjustment of the mA and/or kV according to patient size, use of iterative reconstruction technique) 2010 [employer]- All Rights Reserved
--- NOTE | 2017-01-04 23:17 | RADIOLOGY REPORT (SQ) ---
EXAM DESCRIPTION: CT CERVICAL SPINE WITHOUT COMPLETED DATE/TIME: 01/04/2017 11:01 pm REASON FOR STUDY: injury COMPARISON: 02/28/2016 TECHNIQUE: Axial images acquired through the cervical spine without intravenous contrast. Images re viewed with lung, soft tissue and bone windows. Reconstructed coronal and sagittal MPR images review ed. Images stored on PACS. All CT scanners at this facility use dose modulation, iterative reconstruction, and/or weight based d osing when appropriate to reduce radiation dose to as low as reasonably achievable (ALARA). [facility]: Dose Right [facility]: CareDose [facility]: Dose Right [facility]: Teradose 4D [facility]: [employer] RADIATION DOSE: Up-to-date CT equipment and radiation dose reduction techniques were employed. CTDIv ol: 13.9 mGy. DLP: 315 mGy-cm. mGy. LIMITATIONS: None. FINDINGS: ALIGNMENT: Anatomic. MINERALIZATION: Osteopenia. VERTEBRAL BODIES: Re- demonstration of recently diagnosed right T1 transverse process and chronic fra ctures/fracture deformities of C2 and C3. No acute fractures are demonstrated on today's examination . DISCS: Multilevel disc space narrowing with osteophytes. FACETS, LATERAL MASSES, POSTERIOR ELEMENTS: Facet arthropathy. No dislocation. No acute findings. HARDWARE: None in the spine. VISUALIZED RIBS: No fractures. LUNG APICES AND SOFT TISSUES: No significant or acute findings. OTHER: No other significant finding. IMPRESSION: Chronic posttraumatic and degenerative changes. No evidence of acute osseous injury. TECHNICAL DOCUMENTATION: JOB ID: [id number] Quality ID # [id number]: Final reports with documentation of one or more dose reduction techniques (e.g., Au tomated exposure control, adjustment of the mA and/or kV according to patient size, use of iterative reconstruction technique) 2010 [employer]- All Rights Reserved
[2017-01-04] MEDS ORDERED: LIDOCAINE 1% INJ-PF (10 MG/ML) 30 ML SDV INJ ONE (23:20)
[2017-01-05 00:52] VITALS: BP 164/95
== END 2017-01-05 01:16 | disposition home or self-care (01) ==
LOC: ER 21:59
DX: S01.21XA Laceration without foreign body of nose, initial encounter (principal); W19.XXXA Unspecified fall, initial encounter; Y92.129 Unspecified place in nursing home as the place of occurrence of the external cause; F03.90 Unspecified dementia, unspecified severity, without behavioral disturbance, psychotic disturbance, mood disturbance, and anxiety; I10 Essential (primary) hypertension; J44.9 Chronic obstructive pulmonary disease, unspecified; Z91.018 Allergy to other foods; Z87.892 Personal history of anaphylaxis; Z88.0 Allergy status to penicillin; Z23 Encounter for immunization
CPT/HCPCS: 99285; 90471; 70450; 72125; 90715; 12011; J3490

== ENCOUNTER 2017-01-05 16:02 | Emergency (ER) | payer OTHER, MEDICARE, MEDICAID ==
[2017-01-05 16:19] VITALS: BP 168/94
--- NOTE | 2017-01-05 16:42 | ER Document Report ---
ED Fall - General Chief Complaint: Fall Stated Complaint: FALL Time Seen by Provider: 01/05/17 16:11 Notes: The patient is a 66-year-old male, past medical history dementia, presents from [facility] after an unwitnessed fall. He was seen last night for a similar incident with a negative CT Head and C-spine. He had a nose laceration repaired last night too. History is difficult to obtain due to his baseline dementia. TRAVEL OUTSIDE OF THE [place] IN LAST 30 DAYS: No - Related data Allergies/Adverse Reactions: Penicillins Allergy (Verified 01/04/17 22:35) Anaphylaxis strawberry [[place]] Allergy (Verified 01/04/17 22:35) Rash Past Medical History - General Information source: Emergency Med Personnel Cannot obtain history due to: Dementia - Social History Smoking Status: Unknown if Ever Smoked Family History: DM, Hypertension Patient has suicidal ideation: No Patient has homicidal ideation: No - Past Medical History Cardiac Medical History: Reports: Hx Hypercholesterolemia, Hx Hypertension Pulmonary Medical History: Reports: Hx COPD, Hx Pneumonia Neurological Medical History: Reports: Hx Seizures Renal/ Medical History: Denies: Hx Peritoneal Dialysis GI Medical History: Reports: Hx Gastroesophageal Reflux Disease - Immunizations Hx Diphtheria, Pertussis, Tetanus Vaccination: Yes - 01/04/17 Hx Pneumococcal Vaccination: 03/27/12 Review of Systems - Review of Systems -: Yes ROS unobtainable due to patient's medical condition Physical Exam - Vital signs Vitals: Temp Pulse Resp BP Pulse Ox 96.4 F L 86 18 168/94 H 96 01/05/17 16:11 01/05/17 16:11 01/05/17 16:11 01/05/17 16:11 01/05/17 16:11 - Notes Notes: PHYSICAL EXAMINATION: GENERAL: In no acute distress. HEAD: Left periorbital ecchymosis. EYES: Pupils equal round and reactive to light, extraocular movements intact, sclera anicteric, conjunctiva are normal. ENT: nares patent, oropharynx clear without exudates. Moist mucous membranes. NECK: In C-collar placed by EMS, supple without lymphadenopathy LUNGS: Breath sounds clear to auscultation bilaterally and equal. No wheezes rales or rhonchi. HEART: Regular rate and rhythm without murmurs ABDOMEN: Soft, nontender, normoactive bowel sounds. No guarding, no rebound. No masses appreciated. EXTREMITIES: Normal range of motion, no pitting or edema. No cyanosis. NEUROLOGICAL: Normal sensory and motor exams. SKIN: Warm, Dry, normal turgor, no rashes or lesions noted. T-shaped sutured laceration over nose. Course - Re-evaluation Re-evalutation: Patient has no acute findings on his CAT scan. Will send him back to the half-way. - Vital Signs Vital signs: Temp Pulse Resp BP Pulse Ox 96.4 F L 86 18 168/94 H 96 01/05/17 17:52 01/05/17 17:52 01/05/17 17:52 01/05/17 17:52 01/05/17 17:52 - Diagnostic Test Radiology reviewed: Image reviewed, Reports reviewed Radiology results interpreted by me: CT Head/Face/C-spine: NAD - EKG Interpretation by Me EKG shows normal: Sinus rhythm, [place], Intervals, QRS Complexes, ST-T Waves Rate: Normal Discharge - Discharge Clinical Impression: Fall Qualifiers: Encounter type: initial encounter Qualified Code(s): W19.XXXA - Unspecified fall, initial encounter Periorbital ecchymosis of left eye Qualifiers: Encounter type: initial encounter Qualified Code(s): S00.12XA - Contusion of left eyelid and periocular area, initial encounter Condition: Stable Disposition: HOME, SELF-CARE Additional Instructions: NORMAL EXAM AND WORKUP: At this time, your examination and workup show no significant abnormality. No significant abnormal physical findings were noted. All laboratory, EKG, and imaging (x-ray, CT scans, ultrasound) studies that were ordered show no significant abnormality. Although your examination and all studies that were ordered showed no significant abnormal finding, there are no examinations and no studies that are 100% accurate. There is always the possibility that some abnormality could exist and not be detected with physical examination or within the limits and capabilities of laboratory and other studies. You should return or follow up as you were instructed on your visit today for further evaluation if your symptoms do not resolve. Contusion Your injury has resulted in a contusion -- a crushing of the deep tissues. No injury to important structures was detected during the physician's exam. Contusions vary in the amount of pain they cause, and in the length of time required for healing. Typically, the area will become bruised, and will remain painful to touch for two or three weeks. However, most patients are back to working and playing within a few days. After the initial period of rest and cold-packs, your symptoms (together with the doctor's recommendations) will determine how rapidly you can get back to full activity. Usually this means "do what feels okay, but don't do things that hurt." If re-examination was recommended, it's important to follow up as instructed. Call the doctor or return any time if pain increases, if swelling becomes severe, if you develop numbness or weakness in an injured extremity, or if any other alarming symptoms occur. Forms: Elevated Blood Pressure
--- NOTE | 2017-01-05 17:14 | RADIOLOGY REPORT (SQ) ---
EXAM DESCRIPTION: CT HEAD WITHOUT COMPLETED DATE/TIME: 01/05/2017 4:55 pm REASON FOR STUDY: fall COMPARISON: 01/04/2017. TECHNIQUE: Axial images acquired through the brain without intravenous contrast. Images reviewed wi th bone, brain and subdural windows. Images stored on PACS. All CT scanners at this facility use dose modulation, iterative reconstruction, and/or weight based d osing when appropriate to reduce radiation dose to as low as reasonably achievable (ALARA). [facility]: Dose Right [facility]: CareDose [facility]: Dose Right [facility]: Teradose 4D [facility]: [employer] RADIATION DOSE: Up-to-date CT equipment and radiation dose reduction techniques were employed. CTDIv ol: 64.6 mGy. DLP: 1163 mGy-cm. mGy. LIMITATIONS: None. FINDINGS: VENTRICLES: Normal size and contour. CEREBRUM: Right frontal infarct, as before. No hemorrhage or mass or shift. No new areas of infarct detected grossly. CEREBELLUM: No masses. No hemorrhage. No alteration of density. No evidence for acute infarction. EXTRAAXIAL SPACES: No fluid collections. No masses. ORBITS AND GLOBE: No intra- or extraconal masses. Normal contour of globe without masses. CALVARIUM: No fracture. PARANASAL SINUSES: No fluid or mucosal thickening. SOFT TISSUES: No mass or hematoma. OTHER: No other significant finding. IMPRESSION: Chronic intracranial changes. No acute abnormality. EVIDENCE OF ACUTE STROKE: NO. COMMENT: Quality ID # [id number]: Final reports with documentation of one or more dose reduction techniques (e.g., Automated exposure control, adjustment of the mA and/or kV according to patient size, use of iterative reconstruction technique) TECHNICAL DOCUMENTATION: JOB ID: [id number] [employer]- All Rights Reserved
--- NOTE | 2017-01-05 17:18 | RADIOLOGY REPORT (SQ) ---
EXAM DESCRIPTION: CT FACIAL AREA WITHOUT COMPLETED DATE/TIME: 01/05/2017 4:55 pm REASON FOR STUDY: fall COMPARISON: None. TECHNIQUE: Noncontrasted images through the facial bones and orbits windowed for bone and soft tissu e. Additional coronal and sagittal reconstructed images reviewed. All images stored on PACS. All CT scanners at this facility use dose modulation, iterative reconstruction, and/or weight based d osing when appropriate to reduce radiation dose to as low as reasonably achievable (ALARA). [facility]: Dose Right [facility]: CareDose [facility]: Dose Right [facility]: Teradose 4D [facility]: [employer] RADIATION DOSE: Up-to-date CT equipment and radiation dose reduction techniques were employed. CTDIv ol: 30.4 mGy. DLP: 612 mGy-cm. mGy. LIMITATIONS: None. FINDINGS: FACIAL BONES: Mild chronic scratch at mild chronic flattening right nasal bone. No acute facial fracture identified. ORBITS: Intact. No fracture. Symmetric intact globes and retroorbital soft tissues. PARANASAL SINUSES: Clear. No significant mucosal thickening, mass or fluid. SOFT TISSUES: No mass or edema. INFERIOR BRAIN: Limited view. No acute findings. OTHER: The patient is nearly completely edentulous. The posterior right maxillary tooth looks almost completely out, only minimally anchored in the bone. IMPRESSION: 1. No acute facial fracture identified. TECHNICAL DOCUMENTATION: JOB ID: [id number] Quality ID # [id number]: Final reports with documentation of one or more dose reduction techniques (e.g., Au tomated exposure control, adjustment of the mA and/or kV according to patient size, use of iterative reconstruction technique) 2010 [employer]- All Rights Reserved
--- NOTE | 2017-01-05 17:20 | RADIOLOGY REPORT (SQ) ---
EXAM DESCRIPTION: CT CERVICAL SPINE WITHOUT COMPLETED DATE/TIME: 01/05/2017 4:55 pm REASON FOR STUDY: fall COMPARISON: 12/28/2016. TECHNIQUE: Axial images acquired through the cervical spine without intravenous contrast. Images re viewed with lung, soft tissue and bone windows. Reconstructed coronal and sagittal MPR images review ed. Images stored on PACS. All CT scanners at this facility use dose modulation, iterative reconstruction, and/or weight based d osing when appropriate to reduce radiation dose to as low as reasonably achievable (ALARA). [facility]: Dose Right [facility]: CareDose [facility]: Dose Right [facility]: Teradose 4D [facility]: [employer] RADIATION DOSE: Up-to-date CT equipment and radiation dose reduction techniques were employed. CTDIv ol: 14.3 mGy. DLP: 299 mGy-cm. mGy. LIMITATIONS: None. FINDINGS: ALIGNMENT: Anatomic. MINERALIZATION: Normal. VERTEBRAL BODIES: No fractures or dislocation. DISCS: Minimal disc related osteophytes with slight narrowing in the upper cervical region, multileve l. FACETS, LATERAL MASSES, POSTERIOR ELEMENTS: Chronic fracture through the right T1 and T2 transverse p rocesses. No change. No displacement. HARDWARE: None in the spine. VISUALIZED RIBS: No fractures. LUNG APICES AND SOFT TISSUES: Left apical scar. Emphysema. No abnormal soft tissue gas or gross mas s. OTHER: No other significant finding. IMPRESSION: 1. Chronic right T1 and T2 transverse process fractures. No acute injury or malalignmen t detected. TECHNICAL DOCUMENTATION: JOB ID: [id number] Quality ID # [id number]: Final reports with documentation of one or more dose reduction techniques (e.g., Au tomated exposure control, adjustment of the mA and/or kV according to patient size, use of iterative reconstruction technique) 2010 [employer]- All Rights Reserved
--- NOTE | 2017-01-05 23:24 | EKG REPORT ---
SEVERITY:- ABNORMAL ECG - SINUS RHYTHM RIGHT ATRIAL ABNORMALITY CONSIDER LEFT VENTRICULAR HYPERTROPHY : Confirmed by: Jalen Antunez MD 05-Jan-2017 23:23:40
== END 2017-01-05 18:21 | disposition home or self-care (01) ==
LOC: ER 16:02
DX: S00.12XA Contusion of left eyelid and periocular area, initial encounter (principal); S01.21XD Laceration without foreign body of nose, subsequent encounter; F03.90 Unspecified dementia, unspecified severity, without behavioral disturbance, psychotic disturbance, mood disturbance, and anxiety; W19.XXXA Unspecified fall, initial encounter
CPT/HCPCS: 70450; 70486; 72125; 93005; 93010; 99284